=== PATIENT | male | born 1950 | race Caucasian/White ===

== ENCOUNTER 2016-07-25 16:15 | Inpatient (IN) | payer MEDICARE ==
[~2016-07-25] VITALS: Ht 167.6 cm; Wt 81.6 kg
[2016-07-25] MEDS ORDERED: DILTIAZEM IV PUSH 25 MG/5 ML VIAL. IVP ONE (17:15)
[2016-07-25 17:27] LABS: BASO % 0 % (0-3); EOS % 3 % (0-3); HEMATOCRIT 27.4 % (39.0-53.0); HEMOGLOBIN 9.3 g/dL (13.0-17.5); LYMPH # 1.5 x10^3/uL (1.0-4.8); LYMPH % 28 % (24-48); MEAN CORPUSCULAR HEMOGLOBIN 35 pg (25-35); MEAN CORPUSCULAR HGB CONC 34 g/dL (31-37); MEAN CORPUSCULAR VOLUME 103 fL (79-100); MONO % 5 % (0-9); NEUT % 64 % (31-73); PLATELET COUNT 216 x10^3/uL (140-400); RED BLOOD COUNT 2.66 x10^6/uL (4.30-5.70); RED CELL DISTRIBUTION WIDTH 14.6 % (11.5-14.5); WHITE BLOOD COUNT 5.5 x10^3/uL (4.0-11.0)
[2016-07-25] MEDS ORDERED: DILTIAZEM 125 MG in IV DEXTROSE 5% 100 ML IV PRN ×2 (17:30→17:45)
[2016-07-25 17:35] LABS: PROTHROMBIN TIME PATIENT 12.8 SEC (11.7-14.0)
--- NOTE | 2016-07-25 17:42 | PHYS DOC ---
Past Medical History Past Medical History: Diabetes-Type II, Hypertension Additional Past Medical Histor: CATARACTS Past Surgical History: Tonsillectomy, Other Additional Past Surgical Histo: AB HERNIA REPAIR,DIALYSIS SHUNT L ARM Alcohol Use: None Drug Use: None Adult General Chief Complaint Chief Complaint: RAPID HEART RATE HPI HPI Patient is a 66 year old male who presents by EMS from dialysis for A. fib with RVR. He felt generally abnormal, and had his vitals taken noted to be tachycardic. EKG was performed noting A. fib with RVR and he was transported here. He is currently without symptoms. He denies chest pain, dyspnea, lightheadedness, fever or chills, nausea or vomiting, abdominal pain, diarrhea. Denies recent [id number] medication use. Review of Systems Review of Systems Constitutional: Denies fever or chills [] Eyes: Denies change in visual acuity, redness, or eye pain [] HENT: Denies nasal congestion or sore throat [] Respiratory: Denies cough or shortness of breath [] Cardiovascular: No additional information not addressed in HPI [] GI: Denies abdominal pain, nausea, vomiting, bloody stools or diarrhea [] : Denies dysuria or hematuria [] Musculoskeletal: Denies back pain or joint pain [] Integument: Denies rash or skin lesions [] Neurologic: Denies headache, focal weakness or sensory changes [] Endocrine: Denies polyuria or polydipsia [] Current Medications Current Medications Current Medications Medications (Trade) Dose Ordered Sig/[facility] Start Time Stop Time Status Last Admin Dose Admin Diltiazem HCl (Cardizem) 20 mg 1X ONCE 07/25/16 17:15 07/25/16 17:19 DC 07/25/16 17:26 20 MG Allergies Allergies Allergies Coded Allergies Type Severity Reaction Last Updated Verified Penicillins Allergy Intermediate Hives 07/25/16 Yes Physical Exam Physical Exam Constitutional: Well developed, well nourished, no acute distress, non-toxic appearance. [] HENT: Normocephalic, atraumatic, bilateral external ears normal, oropharynx moist, nose normal. [] Eyes: PERRLA, EOMI. [] Neck: Normal range of motion, supple. [] Cardiovascular: Irregular tachycardia [] Lungs & Thorax: Bilateral breath sounds clear to auscultation [] Abdomen: Bowel sounds normal, soft, no tenderness. [] Skin: Warm, dry, no erythema, no rash. [] Back: Normal range of motion. [] Extremities: ROM intact, left upper extremity dialysis graft. [] Neurologic: Alert and oriented X 3, normal motor function, normal sensory function, no focal deficits noted. [] Psychologic: Affect normal, judgement normal, mood normal. [] Current Patient Data Vital Signs Vital Signs Date Time Temp Pulse Resp B/P Pulse Ox O2 Delivery O2 Flow Rate FiO2 07/25/16 16:15 97.7 134 16 144/71 97 Room Air 97.7 Lab Values Laboratory Tests Test 07/25/16 16:19 White Blood Count 5.5x10^3/uL (4.0-11.0) Red Blood Count 2.66x10^6/uL (4.30-5.70) L Hemoglobin 9.3g/dL (13.0-17.5) L Hematocrit 27.4% (39.0-53.0) L Mean Corpuscular Volume 103fL (79-100) H Mean Corpuscular Hemoglobin 35pg (25-35) Mean Corpuscular Hemoglobin Concent 34g/dL (31-37) Red Cell Distribution Width 14.6% (11.5-14.5) H Platelet Count 216x10^3/uL (140-400) Neutrophils (%) (Auto) 64% (31-73) Lymphocytes (%) (Auto) 28% (24-48) Monocytes (%) (Auto) 5% (0-9) Eosinophils (%) (Auto) 3% (0-3) Basophils (%) (Auto) 0% (0-3) Neutrophils # (Auto) 3.5x10^3uL (1.8-7.7) Lymphocytes # (Auto) 1.5x10^3/uL (1.0-4.8) Monocytes # (Auto) 0.3x10^3/uL (0.0-1.1) Eosinophils # (Auto) 0.2x10^3/uL (0.0-0.7) Basophils # (Auto) 0.0x10^3/uL (0.0-0.2) Prothrombin Time 12.8SEC (11.7-14.0) Prothrombin Time INR 1.0 (0.8-1.1) Sodium Level 144mmol/L (136-145) Potassium Level 3.9mmol/L (3.5-5.1) Chloride Level 101mmol/L (98-107) Carbon Dioxide Level 32mmol/L (21-32) Anion Gap 11 (6-14) Blood Urea Nitrogen 24mg/dL (8-26) Creatinine 2.8mg/dL (0.7-1.3) H Estimated GFR (Cockcroft-Gault) 22.7 Glucose Level 257mg/dL (70-99) H Calcium Level 9.2mg/dL (8.5-10.1) Magnesium Level 2.0mg/dL (1.8-2.4) Thyroid Stimulating Hormone (TSH) 1.428uIU/mL (0.358-3.74) Laboratory Tests 07/25/16 16:19 Laboratory Tests 07/25/16 16:19 EKG EKG EKG as interpreted by me as atrial fibrillation with rapid ventricular rate, rate 127, no ST-T changes Course & Med Decision Making Course & Med Decision Making Pertinent Labs and Imaging studies reviewed. (See chart for details) Workup is unremarkable other than A. fib with RVR. He is placed on a Cardizem drip and converted to normal sinus rhythm. Initially was placed in the ICU, but this was changed to CVC after he converted. Discussed case with Dr. Rey, who will admit. Cardiology consultation placed. Dragon Disclaimer Dragon Disclaimer This electronic medical record was generated, in whole or in part, using a voice recognition dictation system. Departure Departure Impression: Primary Impression: Atrial fibrillation with RVR Additional Impression: ESRD on dialysis Disposition: ADMITTED INPATIENT Condition: CRITICAL Referrals: MITRA TAYLOR MD (PCP) Problem Qualifiers Matthew BRUNSON MD Jul 25, 2016 17:42
[2016-07-25 17:44] LABS: CALCIUM 9.2 mg/dL (8.5-10.1); CREATININE 2.8 mg/dL (0.7-1.3); GFR 22.7; POTASSIUM 3.9 mmol/L (3.5-5.1)
[2016-07-25] MEDS ORDERED: ONDANSETRON PF 4 MG/2 ML VIAL. IV PRN ×2 (17:45→18:07)
[2016-07-25] MEDS ORDERED: ACETAMINOPHEN 325 MG TABLET. PO PRN (17:45)
--- NOTE | 2016-07-25 18:13 | PDOC1 ---
History and Physical Date of Admission Date of Admission DATE: 07/25/16 TIME: 18:09 Identification/Chief Complaint Chief Complaint none Source Source: Caregiver, Chart review, Patient History of Present Illness History of Present Illness pleasant 66 y./o male ESRD on HD MWF, sent in bec of atrial fib RVR while on HD today, New to pt, pt denies any sxs. Pt on HD bec of HTN and DM on insulin, unknown hgba1c. PCP? HR ranges from low 1teens to 140s at er, initial reports of hTN but not at ER (Systolic 140s), Pt getting cardizem bolus and starting gtt to ICU. Pt denies heavy coffeee, does smoke 1 ppday x 40 yrs Past Medical History Cardiovascular: HTN, Hyperlipidemia Pulmonary: Bronchitis Heme/Onc: Anemia NOS Renal/: Chronic renal insuff Endocrine: Diabetes Past Surgical History Past Surgical History: No pertinent history Family History Family History: Family History Unknown Social History Smoke: 1 pack per day ALCOHOL: occassional Drugs: None Current Problem List Problem List Problems Medical Problems: (1) Atrial fibrillation with RVR Status: Acute (2) ESRD on dialysis Status: Acute Problems: Current Medications Current Medications Current Medications Diltiazem HCl 20 mg 20 mg 1X ONCE IVP Last administered on 07/25/16t 17:26; Start 07/25/16 at 17:15; Stop 07/25/16 at 17:19; Status DC Diltiazem HCl 125 mg/Dextrose 125 ml @ 0 mls/hr CONT PRN IV SEE I/O RECORD Last administered on 07/25/16t 17:31; Start 07/25/16 at 17:30; Stop 07/25/16 at 17:47; Status DC Diltiazem HCl/ Dextrose (Cardizem) 125 ml @ 0 mls/hr CONT PRN IV SEE I/O RECORD ; Start 07/25/16 at 17:45 Ondansetron HCl (Zofran) 4 mg PRN Q8HRS PRN IV NAUSEA/VOMITING; Start 07/25/16 at 17:45; Stop 07/26/16 at 17:44 Acetaminophen (Tylenol) 650 mg PRN Q4HRS PRN PO FEVER; Start 07/25/16 at 17:45 ; Stop 07/26/16 at 17:44 Allergies Allergies: Coded Allergies: Penicillins (Verified Allergy, Intermediate, Hives, 2/27/17) ROS Review of System denies all 14 pt system reviewed Physical Exam General: Alert, Oriented X3, Cooperative, No acute distress HEENT: Atraumatic, Mucous membr. moist/pink Lungs: Clear to auscultation, Normal air movement Heart: S1S2, RRR, no thrills, no rubs, no jug vein distention Cardiovascular: Other (irregularly irreg) Breasts: Normal Abdomen: Normal bowel sounds, Soft, No tenderness, No hepatosplenomegaly, No masses Male Genitals Exam: normal genitalia, normal prostate PELVIC: Nml ext genitalia Extremities: No clubbing, No cyanosis, No edema, Normal pulses, No tenderness/ swelling Skin: No rashes, No breakdown, No significant lesion Neuro: Normal gait, Normal speech, Strength at 5/5 X4 ext, Normal tone, Sensation intact, Cranial nerves 3-12 NL, Reflexes 2+ Psych/Mental Status: Mental status NL, Mood NL Vitals Vitals Vital Signs Date Time Temp Pulse Resp B/P Pulse Ox O2 Delivery O2 Flow Rate FiO2 07/25/16 17:26 147 174/96 07/25/16 16:15 97.7 16 97 Room Air 97.7 Labs Labs Laboratory Tests Test 07/25/16 16:19 White Blood Count 5.5x10^3/uL (4.0-11.0) Red Blood Count 2.66x10^6/uL (4.30-5.70) Hemoglobin 9.3g/dL (13.0-17.5) Hematocrit 27.4% (39.0-53.0) Mean Corpuscular Volume 103fL (79-100) Mean Corpuscular Hemoglobin 35pg (25-35) Mean Corpuscular Hemoglobin Concent 34g/dL (31-37) Red Cell Distribution Width 14.6% (11.5-14.5) Platelet Count 216x10^3/uL (140-400) Neutrophils (%) (Auto) 64% (31-73) Lymphocytes (%) (Auto) 28% (24-48) Monocytes (%) (Auto) 5% (0-9) Eosinophils (%) (Auto) 3% (0-3) Basophils (%) (Auto) 0% (0-3) Neutrophils # (Auto) 3.5x10^3uL (1.8-7.7) Lymphocytes # (Auto) 1.5x10^3/uL (1.0-4.8) Monocytes # (Auto) 0.3x10^3/uL (0.0-1.1) Eosinophils # (Auto) 0.2x10^3/uL (0.0-0.7) Basophils # (Auto) 0.0x10^3/uL (0.0-0.2) Prothrombin Time 12.8SEC (11.7-14.0) Prothromb Time International Ratio 1.0 (0.8-1.1) Sodium Level 144mmol/L (136-145) Potassium Level 3.9mmol/L (3.5-5.1) Chloride Level 101mmol/L (98-107) Carbon Dioxide Level 32mmol/L (21-32) Anion Gap 11 (6-14) Blood Urea Nitrogen 24mg/dL (8-26) Creatinine 2.8mg/dL (0.7-1.3) Estimated GFR (Cockcroft-Gault) 22.7 Glucose Level 257mg/dL (70-99) Calcium Level 9.2mg/dL (8.5-10.1) Magnesium Level 2.0mg/dL (1.8-2.4) Laboratory Tests Test 07/25/16 16:19 White Blood Count 5.5x10^3/uL (4.0-11.0) Red Blood Count 2.66x10^6/uL (4.30-5.70) Hemoglobin 9.3g/dL (13.0-17.5) Hematocrit 27.4% (39.0-53.0) Mean Corpuscular Volume 103fL (79-100) Mean Corpuscular Hemoglobin 35pg (25-35) Mean Corpuscular Hemoglobin Concent 34g/dL (31-37) Red Cell Distribution Width 14.6% (11.5-14.5) Platelet Count 216x10^3/uL (140-400) Neutrophils (%) (Auto) 64% (31-73) Lymphocytes (%) (Auto) 28% (24-48) Monocytes (%) (Auto) 5% (0-9) Eosinophils (%) (Auto) 3% (0-3) Basophils (%) (Auto) 0% (0-3) Neutrophils # (Auto) 3.5x10^3uL (1.8-7.7) Lymphocytes # (Auto) 1.5x10^3/uL (1.0-4.8) Monocytes # (Auto) 0.3x10^3/uL (0.0-1.1) Eosinophils # (Auto) 0.2x10^3/uL (0.0-0.7) Basophils # (Auto) 0.0x10^3/uL (0.0-0.2) Prothrombin Time 12.8SEC (11.7-14.0) Prothromb Time International Ratio 1.0 (0.8-1.1) Sodium Level 144mmol/L (136-145) Potassium Level 3.9mmol/L (3.5-5.1) Chloride Level 101mmol/L (98-107) Carbon Dioxide Level 32mmol/L (21-32) Anion Gap 11 (6-14) Blood Urea Nitrogen 24mg/dL (8-26) Creatinine 2.8mg/dL (0.7-1.3) Estimated GFR (Cockcroft-Gault) 22.7 Glucose Level 257mg/dL (70-99) Calcium Level 9.2mg/dL (8.5-10.1) Magnesium Level 2.0mg/dL (1.8-2.4) VTE Prophylaxis Ordered VTE Prophylaxis Devices: Yes VTE Pharmacological Prophylaxi: Yes Assessment/Plan Assessment/Plan 1. New onset atrial fib RVR, CHADS 3 2. ESDR on HD MWF 3. obesity 4. HTN, DM 2, on insulin- chronci stable PLAn: ICU admit rate control AC per cards if needed DVT prophy for now Resume home meds - awaiting home meds SSI high dose Check mag, tsh, trops x 3 renal consult for HD PT/OT Seen at ER' [facility] ER MD, MARINE SPECIALIST and pt JAQUELINE STEEN MD Jul 25, 2016 18:13
[2016-07-25] MEDS ORDERED: DEXTROSE 50% 25 GM / 50ML DISP.SYRIN. IV PRN ×2 (18:15→22:45)
--- NOTE | 2016-07-25 18:40 | EKG ---
[facility] [address] [place] [address] Test Date: 2016-07-25 Test Time: 16:25:34 Pat Name: YOLANDE PETERSON Department: Room: 248 1 Gender: M Agent: : [id number] Requested By: Matthew BRUNSON Order Number: [id number] Reading MD: Juan Subramanian Measurements Intervals Interior Rate: 127 P: ME: QRS: 18 QRSD: 94 T: 40 QT: 330 QTc: 485 Interpretive Statements RAPID ATRIAL FIBRILLATION. NONSPECIFIC ST-T WAVE CHANGES. Electronically Signed On 08-01-2016 10:39:19 VP OF CUSTOMER EXPERIENCE STRATEGY by Juan Subramanian
[2016-07-25 19:30] VITALS: BP 167/57
[2016-07-25 21:30] VITALS: BP 221/91
[2016-07-25] MEDS ORDERED: MELA3TAB12 PO (21:47)
[2016-07-25] MEDS ORDERED: CARV6.252 PO (21:47)
[2016-07-25] MEDS ORDERED: TAMS0.4C2 PO (21:47)
[2016-07-25] MEDS ORDERED: CALC667T PO (21:47)
[2016-07-25] MEDS ORDERED: RISP0.5T5 PO (21:47)
[2016-07-25] MEDS ORDERED: INSU100I17 SQ (21:47)
[2016-07-25] MEDS ORDERED: NPH,100I3 SQ (21:47)
[2016-07-25] MEDS ORDERED: HYDR-2666 PO (21:47)
[2016-07-25] MEDS ORDERED: POLY17PO5 PO (21:47)
[2016-07-25] MEDS ORDERED: LOVA40TA2 PO (21:47)
[2016-07-25] MEDS ORDERED: ASPI-482 PO (21:47)
[2016-07-25] MEDS ORDERED: CHOL5000 PO (21:47)
[2016-07-25 22:30] VITALS: BP 188/89
[2016-07-25] MEDS ORDERED: ZOLPIDEM 5 MG TABLET. PO PRN (22:45)
[2016-07-25] MEDS ORDERED: HYDROCODONE/APAP 5/325MG TABLET. PO PRN (22:45)
[2016-07-25 23:15] VITALS: BP 192/83
[2016-07-25] MEDS: ATORVASTATIN CALCIUM 10 MG TABLET. PO SCH (23:57)
[2016-07-25] MEDS: TAMSULOSIN 0.4 MG CAP.ER.24H. PO SCH (23:57)
[2016-07-25] MEDS: risperiDONE 1 MG TABLET. PO SCH (23:58)
[2016-07-25] MEDS: CARVEDILOL 6.25 MG TABLET PO SCH (23:59)
[2016-07-26] VITALS (15 sets, daily range): BP systolic 133–223; BP diastolic 56–91
[2016-07-26] MEDS: INSULIN ASPART 300 UNITS/3 ML INSULN.PEN SQ SCH ×5 (00:12→17:00)
[2016-07-26 06:05] LABS: BASO % 1 % (0-3); EOS % 2 % (0-3); HEMATOCRIT 22.7 % (39.0-53.0); HEMOGLOBIN 7.7 g/dL (13.0-17.5); LYMPH # 1.3 x10^3/uL (1.0-4.8); LYMPH % 24 % (24-48); MEAN CORPUSCULAR HEMOGLOBIN 35 pg (25-35); MEAN CORPUSCULAR HGB CONC 34 g/dL (31-37); MEAN CORPUSCULAR VOLUME 104 fL (79-100); MONO % 10 % (0-9); NEUT % 64 % (31-73); PLATELET COUNT 180 x10^3/uL (140-400); RED CELL DISTRIBUTION WIDTH 14.7 % (11.5-14.5); WHITE BLOOD COUNT 5.5 x10^3/uL (4.0-11.0)
[2016-07-26 06:13] LABS: CALCIUM 8.4 mg/dL (8.5-10.1); CREATININE 4.2 mg/dL (0.7-1.3); GFR 14.2; POTASSIUM 4.3 mmol/L (3.5-5.1)
[2016-07-26] MEDS: CARVEDILOL 6.25 MG TABLET PO SCH (07:50)
[2016-07-26] MEDS: CALCIUM ACETATE 667 MG CAPSULE PO SCH ×3 (08:00→17:00)
[2016-07-26] MEDS ORDERED: INSULIN DETEMIR 300 UNITS/3 ML INSULN.PEN. SQ SCH (08:00)
[2016-07-26] MEDS ORDERED: hydrALAZINE 20 MG/ML VIAL. IVP ONE (08:30)
[2016-07-26] MEDS: ASPIRIN ENTERIC COATED 81 MG TABLET.DR. PO SCH (09:00)
--- NOTE | 2016-07-26 09:30 | PDOC2 ---
REHAN MORENO INTERNATIONAL TRAVEL CONSULTANT 07/26/16 0930: CARDIAC CONSULT DATE OF CONSULT Date of Consult DATE: 07/26/16 TIME: 09:23 REASON FOR CONSULT Reason for Consult: AFIB with RVR REFERRING PHYSICIAN Referring Physician: Dr. Foreman SOURCE Source: Chart review, Patient HISTORY OF PRESENT ILLNESS HISTORY OF PRESENT ILLNESS This is a 66 yo male who presented with from dialysis secondary to AFIB with RVR. Routine vital taken during HD identified tachycardia. EKG was conducted, which showed AFIB with RVR. Patient reports he was feeling well other than having a headache. Reports BP has elevated recently. Denies any chest pain, palpitations, dizziness, diaphoresis, nausea/vomiting. No recent illness/fevers , orthopnea, or VALDIVIA. Diagnosed with stage IV lung CA 1 year ago- treated with radiation therapy. Unfortunately continues to smoke. No previous cardiac workup that he is aware of. Mother from heart attack at age 55. PAST MEDICAL HISTORY Cardiovascular: HTN, Hyperlipidemia Pulmonary: Other (lung CA) CENTRAL NERVOUS SYSTEM: Other (no pertinent hx) GI: No pertinent hx Heme/Onc: Anemia NOS Hepatobiliary: No pertinent hx Psych: No pertinent hx Musculoskeletal: Osteoarthritis Rheumatologic: No pertinent hx Infectious disease: No pertinent hx ENT: No pertinent hx Renal/: Chronic renal failure (with HD MWF) Endocrine: Diabetes Dermatology: No pertinent hx PAST SURGICAL HISTORY Past Surgical History: Cataract Removal, Tonsillectomy, Other (abdominal sx) FAMILY HISTORY Family History: Coronary Artery Disease, Diabetes, Hypertension SOCIAL HISTORY Smoke: 1 pack per day ALCOHOL: none Drugs: None Lives: with Family CURRENT MEDICATIONS CURRENT MEDICATIONS Current Medications Medications (Trade) Dose Ordered Sig/Jessie Route PRN Reason Start Time Stop Time Status Last Admin Dose Admin Diltiazem HCl 20 mg 20 mg 1X ONCE IVP 07/25/16 17:15 07/25/16 17:19 DC 07/25/16 17:26 Diltiazem HCl 125 mg/Dextrose 125 ml @ 0 mls/hr CONT PRN IV SEE I/O RECORD 07/25/16 17:30 07/25/16 17:47 DC 07/25/16 17:31 Diltiazem HCl/ Dextrose (Cardizem) 125 ml @ 0 mls/hr CONT PRN IV SEE I/O RECORD 07/25/16 17:45 07/26/16 05:47 Insulin Aspart (Novolog) 0-9 UNITS TIDWMEALS SQ 07/26/16 08:00 07/26/16 08:39 Carvedilol (Coreg) 6.25 mg BIDWMEALS PO 07/25/16 22:45 07/26/16 07:50 Insulin Detemir (Levemir) 10 units BIDWMEALS SQ 07/26/16 08:00 07/26/16 08:39 Tamsulosin HCl (Flomax) 0.8 mg HS PO 07/25/16 23:00 07/25/16 23:57 Atorvastatin Calcium (Lipitor) 10 mg HS PO 07/25/16 23:00 07/25/16 23:57 Risperidone (Risperdal) 0.5 mg HS PO 07/25/16 23:00 07/25/16 23:58 Insulin Aspart (Novolog) 0-7 UNITS QIDACHS SQ 07/25/16 22:45 07/26/16 00:12 Hydralazine HCl (Apresoline) 10 mg 1X ONCE IVP 07/26/16 08:30 07/26/16 08:31 DC 07/26/16 08:34 ALLERGIES ALLERGIES: Coded Allergies: Penicillins (Verified Allergy, Intermediate, Hives, 07/25/16) ROS Review of System 14 point ROS conducted with pertinent positives noted above in HPI. PHYSICAL EXAM General: Alert, Oriented X3, Cooperative, No acute distress HEENT: Mucous membr. moist/pink Lungs: Clear to auscultation, Normal air movement Heart: Regular rate, Normal S1, Normal S2, Other (2/6 systolic murmur ) Abdomen: Soft, No tenderness Extremities: No cyanosis, No edema, Other (1+ DP pulses bilaterally ) Skin: No significant lesion Neuro: Sensation intact Psych/Mental Status: Mental status NL, Mood NL MUSCULOSKELETAL: Osteoarthritic changes both hands VITALS VITALS Vital Signs Date Time Temp Pulse Resp B/P Pulse Ox O2 Delivery O2 Flow Rate FiO2 07/26/16 08:34 62 203/84 07/26/16 07:45 Room Air 2.0 07/26/16 07:35 97.7 18 93 97.7 LABS Lab: Laboratory Tests Test 07/25/16 16:19 07/25/16 20:49 07/26/16 00:35 2/28/17 05:45 White Blood Count 5.5x10^3/uL (4.0-11.0) 5.5x10^3/uL (4.0-11.0) Red Blood Count 2.66x10^6/uL (4.30-5.70) 2.20x10^6/uL (4.30-5.70) Hemoglobin 9.3g/dL (13.0-17.5) 7.7g/dL (13.0-17.5) Hematocrit 27.4% (39.0-53.0) 22.7% (39.0-53.0) Mean Corpuscular Volume 103fL (79-100) 104fL (79-100) Mean Corpuscular Hemoglobin 35pg (25-35) 35pg (25-35) Mean Corpuscular Hemoglobin Concent 34g/dL (31-37) 34g/dL (31-37) Red Cell Distribution Width 14.6% (11.5-14.5) 14.7% (11.5-14.5) Platelet Count 216x10^3/uL (140-400) 180x10^3/uL (140-400) Neutrophils (%) (Auto) 64% (31-73) 64% (31-73) Lymphocytes (%) (Auto) 28% (24-48) 24% (24-48) Monocytes (%) (Auto) 5% (0-9) 10% (0-9) Eosinophils (%) (Auto) 3% (0-3) 2% (0-3) Basophils (%) (Auto) 0% (0-3) 1% (0-3) Neutrophils # (Auto) 3.5x10^3uL (1.8-7.7) 3.5x10^3uL (1.8-7.7) Lymphocytes # (Auto) 1.5x10^3/uL (1.0-4.8) 1.3x10^3/uL (1.0-4.8) Monocytes # (Auto) 0.3x10^3/uL (0.0-1.1) 0.5x10^3/uL (0.0-1.1) Eosinophils # (Auto) 0.2x10^3/uL (0.0-0.7) 0.1x10^3/uL (0.0-0.7) Basophils # (Auto) 0.0x10^3/uL (0.0-0.2) 0.0x10^3/uL (0.0-0.2) Prothrombin Time 12.8SEC (11.7-14.0) Prothromb Time International Ratio 1.0 (0.8-1.1) Sodium Level 144mmol/L (136-145) 140mmol/L (136-145) Potassium Level 3.9mmol/L (3.5-5.1) 4.3mmol/L (3.5-5.1) Chloride Level 101mmol/L (98-107) 100mmol/L (98-107) Carbon Dioxide Level 32mmol/L (21-32) 30mmol/L (21-32) Anion Gap 11 (6-14) 10 (6-14) Blood Urea Nitrogen 24mg/dL (8-26) 38mg/dL (8-26) Creatinine 2.8mg/dL (0.7-1.3) 4.2mg/dL (0.7-1.3) Estimated GFR (Cockcroft-Gault) 22.7 14.2 Glucose Level 257mg/dL (70-99) 447mg/dL (70-99) Calcium Level 9.2mg/dL (8.5-10.1) 8.4mg/dL (8.5-10.1) Magnesium Level 2.0mg/dL (1.8-2.4) 2.0mg/dL (1.8-2.4) Thyroid Stimulating Hormone (TSH) 1.428uIU/mL (0.358-3.74) Glucose (Fingerstick) 443mg/dL (70-99) Troponin I Quantitative 3.560ng/mL (0.000-0.055) 3.989ng/mL (0.000-0.055) Test 07/26/16 07:39 Glucose (Fingerstick) 369mg/dL (70-99) ASSESSMENT/PLAN ASSESSMENT/PLAN 1. AFIB with RVR converted with cardizem gtt; maintaining SR- will convert to oral. TSH, Mg WNL [id number] score 3 indicating a moderate-high risk for stroke. Given episode of AFIB was <24hr, will continue ASA for stroke prophylaxis. Consider event monitor as DC. check echo to assess LV function and further assess systolic murmur 2. Elevated Troponin peak 4.2 in the setting of RF, RVR, and malignant HTN given significant risk factors, recommend LHC. R/B/A discussed and patient agreeable. D/w primary cardiology. start heparin gtt per CV protocol 3. Malignant hypertension improved. Add NACHO hydralazine PRN 4. Hyperlipidemia resume statin check lipids 5, ESRD on HD 6. Diabetes, II uncontrolled. Management per PCP 7. Stage IV lung CA s/p radiation therapy follows with [facility]ology Problems: REGINA LANG MD 07/27/16 0551: CARDIAC CONSULT ALLERGIES ALLERGIES: Coded Allergies: Penicillins (Verified Allergy, Intermediate, Hives, 07/25/16) ASSESSMENT/PLAN ASSESSMENT/PLAN Patient seen and examined 07/26/16. Agree with COLLAR SHAPER OPERATOR's assessment and plan. Atrial fib rate better controlled with CZM. Continue to titrate antihypertensives for better BP control. LV function normal on echo. NSTEMI could be secondary to demand ischemia from a combination of uncontrolled hypertension and rapid ventricular response but ischemic etiology needs to be ruled out. Plan for cardiac cath and possible PCI. Risks and benefits explained. Continue HD per nephrology team. Thank you for your consultation. Problems: REHAN MORENO APRN Jul 26, 2016 09:30 REGINA LANG MD Jul 27, 2016 05:51
[2016-07-26] MEDS ORDERED: HEPARIN for IV BOLUS 10,000 UNIT/10 ML VIAL. IV PRN (10:15)
[2016-07-26] MEDS ORDERED: HEPARIN 25,000UTS/500ML PREMIX 500 ML IV PRN (10:15)
[2016-07-26] MEDS ORDERED: hydrALAZINE 20 MG/ML VIAL. IVP PRN (10:15)
[2016-07-26] MEDS ORDERED: DILTIAZEM HCL 30 MG TABLET PO SCH (10:30)
[2016-07-26] MEDS ORDERED: LISINOPRIL 5 MG TABLET. PO SCH (10:30)
--- NOTE | 2016-07-26 10:39 | RAD ---
Portable chest, 07/26/2016: History: Lung cancer No previous chest radiographs are available at this time for comparison purposes. The heart is at the upper limits of normal in size. There is calcific plaquing the aorta. The pulmonary vascularity is normal. There is pleural thickening in the left lower chest compatible with pleural fluid. There is underlying parenchymal infiltrate in the left lung base. There is mild linear scarring or atelectasis in the right base. The right chest is otherwise clear. IMPRESSION: Moderate left basilar opacity suggesting pleural fluid and infiltrate. Underlying neoplasm cannot be excluded in this patient with a given history of lung cancer.
--- NOTE | 2016-07-26 10:50 | PDOC2 ---
CONSULT Date of Consult Date of Consult DATE: 07/26/16 TIME: 10:45 Reason for Consult Reason for Consult: ESRD Referring Physician Referring Physician: ENIO Identification/Chief Complaint Chief Complaint SOB Source Source: Chart review, Patient History of Present Illness Reason for Visit: THIS IS A 66 YR OLD ADMITTED WITH COMPLAINTS OF SOB AND WEAKNESS AND NOTED TO BE IN AFIB RVR. HX NOTABLE FOR ESRD ON HD ON MWF. HX OF HTN AND DM II CAUSING END ORGAN DAMAGE. LABS C/W ESRD AND ANEMIA. TROPONIN UP WELL Past Medical History Cardiovascular: HTN, Hyperlipidemia Pulmonary: Other (lung CA) CENTRAL NERVOUS SYSTEM: Other (no pertinent hx) GI: No pertinent hx Heme/Onc: Anemia NOS Hepatobiliary: No pertinent hx Psych: No pertinent hx Musculoskeletal: Osteoarthritis Rheumatologic: No pertinent hx Infectious disease: No pertinent hx ENT: No pertinent hx Renal/: Chronic renal failure (with HD MWF) Endocrine: Diabetes, Hyperparathyroidism Dermatology: No pertinent hx Past Surgical History Past Surgical History: Cataract Removal, Tonsillectomy, Other (abdominal sx) Family History Family History: Coronary Artery Disease, Diabetes, Hypertension Social History 1 pack per day ALCOHOL: none Drugs: None Lives: with Family Current Problem List Problem List Problems Medical Problems: (1) Atrial fibrillation with RVR Status: Acute (2) ESRD on dialysis Status: Acute Current Medications Current Medications Current Medications Diltiazem HCl 20 mg 20 mg 1X ONCE IVP Last administered on 07/25/16 17:26; Start 07/25/16 at 17:15; Stop 07/25/16 at 17:19; Status DC Diltiazem HCl 125 mg/Dextrose 125 ml @ 0 mls/hr CONT PRN IV SEE I/O RECORD Last administered on 07/25/16 17:31; Start 07/25/16 at 17:30; Stop 07/25/16 at 17:47; Status DC Diltiazem HCl/ Dextrose (Cardizem) 125 ml @ 0 mls/hr CONT PRN IV SEE I/O RECORD Last administered on 07/26/16 05:47; Start 07/25/16 at 17:45 Ondansetron HCl (Zofran) 4 mg PRN Q8HRS PRN IV NAUSEA/VOMITING; Start 07/25/16 at 17:45; Stop 07/25/16 at 18:09; Status DC Acetaminophen (Tylenol) 650 mg PRN Q4HRS PRN PO FEVER; Start 07/25/16 at 17:45 ; Stop 07/26/16 at 17:44 Ondansetron HCl (Zofran) 4 mg PRN Q6HRS PRN IV NAUSEA/VOMITING; Start 07/25/16 at 18:07 Insulin Aspart (Novolog) 0-9 UNITS TIDWMEALS SQ Last administered on 07/26/16 08:39; Start 07/26/16 at 08:00 Dextrose 12.5 gm PRN Q15MIN PRN IV SEE COMMENTS; Start 07/25/16 at 18:15 Aspirin (Ecotrin) 81 mg DAILY PO ; Start 07/26/16 at 09:00 Carvedilol (Coreg) 6.25 mg BIDWMEALS PO Last administered on 07/26/16 07:50; Start 07/25/16 at 22:45 Vitamin D (Vitamin D3) 5,000 unit WEEKLY PO ; Start 07/29/16 at 09:00 Acetaminophen/ Hydrocodone Bitart (Lortab 5/325) 1 tab PRN Q4HRS PRN PO PAIN; Start 07/25/16 at 22:45 Polyethylene Glycol (miraLAX PACKET) 17 gm HS PO ; Start 07/26/16 at 21:00 Tamsulosin HCl (Flomax) 0.8 mg HS PO ; Start 07/26/16 at 21:00; Stop 07/26/16 at 21:00; Status DC Calcium Acetate (Phoslo) 2 mg TIDWMEALS PO ; Start 07/26/16 at 08:00 Non-Formulary Medication 1 tab HS PO ; Start 07/26/16 at 21:00; Stop 07/26/16 at 21:00; Status DC Zolpidem Tartrate (Ambien) 5 mg PRN QHS PRN PO INSOMNIA; Start 07/25/16 at 22: 45 Insulin Detemir (Levemir) 10 units BIDWMEALS SQ Last administered on 07/26/16 08:39; Start 07/26/16 at 08:00 Non-Formulary Medication 1 tab HS PO ; Start 07/26/16 at 21:00; Stop 07/26/16 at 21:00; Status DC Tamsulosin HCl (Flomax) 0.8 mg HS PO Last administered on 07/25/16 23:57; Start 07/25/16 at 23:00 Atorvastatin Calcium (Lipitor) 10 mg HS PO Last administered on 07/25/16 23:57 ; Start 07/25/16 at 23:00 Risperidone (Risperdal) 0.5 mg HS PO Last administered on 07/25/16 23:58; Start 07/25/16 at 23:00 Insulin Aspart (Novolog) 0-7 UNITS QIDACHS SQ Last administered on 07/26/16 00 :12; Start 07/25/16 at 22:45 Dextrose 12.5 gm PRN Q15MIN PRN IV SEE COMMENTS; Start 07/25/16 at 22:45 Hydralazine HCl (Apresoline) 10 mg 1X ONCE IVP Last administered on 07/26/16 08:34; Start 07/26/16 at 08:30; Stop 07/26/16 at 08:31; Status DC Diltiazem HCl 30 mg 30 mg Q6HRS PO ; Start 07/26/16 at 10:30 Heparin Sodium/ Dextrose 500 ml @ 0 mls/hr CONT PRN IV SEE I/O RECORD; Start at 10:15 Heparin Sodium (Porcine) 2,100 unit PRN Q6HRS PRN IV FOR UFH LEVEL LESS THAN 0.2; Start 07/26/16 at 10:15 Lisinopril (Prinivil) 5 mg DAILY PO ; Start 07/26/16 at 10:30 Hydralazine HCl (Apresoline) 10 mg PRN Q4HRS PRN IVP ELEVATED BP, SEE COMMENTS ; Start 07/26/16 at 10:15 Active Scripts Active Reported Novolog Flexpen (Insulin Aspart) 100 Unit/1 Ml Insuln.pen 1 Unit SQ QIDACHS per SSI protocol Melatonin 3 Mg Tab.rapdis 3 Mg PO PRN QHS PRN Aspir 81 (Aspirin) 81 Mg Tablet.dr 1 Tab PO DAILY Miralax (Polyethylene Glycol 3350) 17 Gm Powd.pack 1 Packet PO HS Vitamin D3 (Cholecalciferol (Vitamin D3)) 5,000 Unit Capsule 1 Cap PO WEEKLY on Monday Humulin N Kwikpen (Nph, Human Insulin Isophane) 100 Unit/1 Ml Insuln.pen 10 Units SQ BIDWMEALS Lovastatin 40 Mg Tablet 1 Tab PO HS Risperidone Odt (Risperidone) 0.5 Mg Tab.rapdis 1 Tab PO HS Carvedilol 6.25 Mg Tablet 1 Tab PO BID Calcium Acetate 667 Mg Tablet 2 Tab PO TIDWMEALS Hydrocodone-Apap 5-325 (Hydrocodone Bit/Acetaminophen) 1 Each Tablet 1 Tab PO PRN Q4HRS PRN Tamsulosin Hcl 0.4 Mg Cap.er.24h 2 Tab PO HS Allergies Allergies: Coded Allergies: Penicillins (Verified Allergy, Intermediate, Hives, 07/25/16) ROS General: YES: Fatigue, Malaise PSYCHOLOGICAL ROS: YES: Anxiety Eyes: Yes Decreased vision HEENT: YES: Heacaches ALLERGY AND IMMUNOLOGY: YES: Hives Respiratory: YES: Cough, Shortness of breath Cardiovascular: yes Palpitations Gastrointestinal: Yes Constipation Genitourinary: YES Other (ANURIA) Musculoskeletal: Yes Muscular Weakness Neurological: Yes Weakness Skin: Yes Dry Skin Physical Exam General: Alert, Oriented X3, Cooperative, No acute distress HEENT: Atraumatic, PERRLA, EOMI Lungs: Clear to auscultation Heart: Other (IRREGULARLY IRREGULAR) Abdomen: Normal bowel sounds, Soft Extremities: No clubbing, No cyanosis Skin: No rashes, No breakdown, No significant lesion Neuro: Normal speech Psych/Mental Status: Mental status NL MUSCULOSKELETAL: No deformity, No swelling Vitals VITALS Vital Signs Date Time Temp Pulse Resp B/P Pulse Ox O2 Delivery O2 Flow Rate FiO2 07/26/16 10:22 67 20 155/91 98 Room Air 07/26/16 07:45 2.0 07/26/16 07:35 97.7 97.7 Labs Labs Laboratory Tests Test 07/25/16 16:19 07/25/16 20:49 07/26/16 00:35 07/26/16 05:45 White Blood Count 5.5x10^3/uL (4.0-11.0) 5.5x10^3/uL (4.0-11.0) Red Blood Count 2.66x10^6/uL (4.30-5.70) 2.20x10^6/uL (4.30-5.70) Hemoglobin 9.3g/dL (13.0-17.5) 7.7g/dL (13.0-17.5) Hematocrit 27.4% (39.0-53.0) 22.7% (39.0-53.0) Mean Corpuscular Volume 103fL (79-100) 104fL (79-100) Mean Corpuscular Hemoglobin 35pg (25-35) 35pg (25-35) Mean Corpuscular Hemoglobin Concent 34g/dL (31-37) 34g/dL (31-37) Red Cell Distribution Width 14.6% (11.5-14.5) 14.7% (11.5-14.5) Platelet Count 216x10^3/uL (140-400) 180x10^3/uL (140-400) Neutrophils (%) (Auto) 64% (31-73) 64% (31-73) Lymphocytes (%) (Auto) 28% (24-48) 24% (24-48) Monocytes (%) (Auto) 5% (0-9) 10% (0-9) Eosinophils (%) (Auto) 3% (0-3) 2% (0-3) Basophils (%) (Auto) 0% (0-3) 1% (0-3) Neutrophils # (Auto) 3.5x10^3uL (1.8-7.7) 3.5x10^3uL (1.8-7.7) Lymphocytes # (Auto) 1.5x10^3/uL (1.0-4.8) 1.3x10^3/uL (1.0-4.8) Monocytes # (Auto) 0.3x10^3/uL (0.0-1.1) 0.5x10^3/uL (0.0-1.1) Eosinophils # (Auto) 0.2x10^3/uL (0.0-0.7) 0.1x10^3/uL (0.0-0.7) Basophils # (Auto) 0.0x10^3/uL (0.0-0.2) 0.0x10^3/uL (0.0-0.2) Prothrombin Time 12.8SEC (11.7-14.0) Prothromb Time International Ratio 1.0 (0.8-1.1) Sodium Level 144mmol/L (136-145) 140mmol/L (136-145) Potassium Level 3.9mmol/L (3.5-5.1) 4.3mmol/L (3.5-5.1) Chloride Level 101mmol/L (98-107) 100mmol/L (98-107) Carbon Dioxide Level 32mmol/L (21-32) 30mmol/L (21-32) Anion Gap 11 (6-14) 10 (6-14) Blood Urea Nitrogen 24mg/dL (8-26) 38mg/dL (8-26) Creatinine 2.8mg/dL (0.7-1.3) 4.2mg/dL (0.7-1.3) Estimated GFR (Cockcroft-Gault) 22.7 14.2 Glucose Level 257mg/dL (70-99) 447mg/dL (70-99) Calcium Level 9.2mg/dL (8.5-10.1) 8.4mg/dL (8.5-10.1) Magnesium Level 2.0mg/dL (1.8-2.4) 2.0mg/dL (1.8-2.4) Thyroid Stimulating Hormone (TSH) 1.428uIU/mL (0.358-3.74) Glucose (Fingerstick) 443mg/dL (70-99) Troponin I Quantitative 3.560ng/mL (0.000-0.055) 3.989ng/mL (0.000-0.055) Test 07/26/16 05:48 07/26/16 07:39 Triglycerides Level 110mg/dL (0-150) Cholesterol Level 111mg/dL (0-200) LDL Cholesterol, Calculated 52mg/dL (0-100) VLDL Cholesterol, Calculated 22mg/dL (0-40) HDL Cholesterol 37mg/dL (40-60) Cholesterol/HDL Ratio 3.0 Glucose (Fingerstick) 369mg/dL (70-99) Laboratory Tests Test 07/25/16 16:19 07/25/16 20:49 07/26/16 00:35 07/26/16 05:45 White Blood Count 5.5x10^3/uL (4.0-11.0) 5.5x10^3/uL (4.0-11.0) Red Blood Count 2.66x10^6/uL (4.30-5.70) 2.20x10^6/uL (4.30-5.70) Hemoglobin 9.3g/dL (13.0-17.5) 7.7g/dL (13.0-17.5) Hematocrit 27.4% (39.0-53.0) 22.7% (39.0-53.0) Mean Corpuscular Volume 103fL (79-100) 104fL (79-100) Mean Corpuscular Hemoglobin 35pg (25-35) 35pg (25-35) Mean Corpuscular Hemoglobin Concent 34g/dL (31-37) 34g/dL (31-37) Red Cell Distribution Width 14.6% (11.5-14.5) 14.7% (11.5-14.5) Platelet Count 216x10^3/uL (140-400) 180x10^3/uL (140-400) Neutrophils (%) (Auto) 64% (31-73) 64% (31-73) Lymphocytes (%) (Auto) 28% (24-48) 24% (24-48) Monocytes (%) (Auto) 5% (0-9) 10% (0-9) Eosinophils (%) (Auto) 3% (0-3) 2% (0-3) Basophils (%) (Auto) 0% (0-3) 1% (0-3) Neutrophils # (Auto) 3.5x10^3uL (1.8-7.7) 3.5x10^3uL (1.8-7.7) Lymphocytes # (Auto) 1.5x10^3/uL (1.0-4.8) 1.3x10^3/uL (1.0-4.8) Monocytes # (Auto) 0.3x10^3/uL (0.0-1.1) 0.5x10^3/uL (0.0-1.1) Eosinophils # (Auto) 0.2x10^3/uL (0.0-0.7) 0.1x10^3/uL (0.0-0.7) Basophils # (Auto) 0.0x10^3/uL (0.0-0.2) 0.0x10^3/uL (0.0-0.2) Prothrombin Time 12.8SEC (11.7-14.0) Prothromb Time International Ratio 1.0 (0.8-1.1) Sodium Level 144mmol/L (136-145) 140mmol/L (136-145) Potassium Level 3.9mmol/L (3.5-5.1) 4.3mmol/L (3.5-5.1) Chloride Level 101mmol/L (98-107) 100mmol/L (98-107) Carbon Dioxide Level 32mmol/L (21-32) 30mmol/L (21-32) Anion Gap 11 (6-14) 10 (6-14) Blood Urea Nitrogen 24mg/dL (8-26) 38mg/dL (8-26) Creatinine 2.8mg/dL (0.7-1.3) 4.2mg/dL (0.7-1.3) Estimated GFR (Cockcroft-Gault) 22.7 14.2 Glucose Level 257mg/dL (70-99) 447mg/dL (70-99) Calcium Level 9.2mg/dL (8.5-10.1) 8.4mg/dL (8.5-10.1) Magnesium Level 2.0mg/dL (1.8-2.4) 2.0mg/dL (1.8-2.4) Thyroid Stimulating Hormone (TSH) 1.428uIU/mL (0.358-3.74) Glucose (Fingerstick) 443mg/dL (70-99) Troponin I Quantitative 3.560ng/mL (0.000-0.055) 3.989ng/mL (0.000-0.055) Test 07/26/16 05:48 07/26/16 07:39 Triglycerides Level 110mg/dL (0-150) Cholesterol Level 111mg/dL (0-200) LDL Cholesterol, Calculated 52mg/dL (0-100) VLDL Cholesterol, Calculated 22mg/dL (0-40) HDL Cholesterol 37mg/dL (40-60) Cholesterol/HDL Ratio 3.0 Glucose (Fingerstick) 369mg/dL (70-99) Assessment/Plan Assessment/Plan IMP ESRD ANEMIA AFIB RVR HTN DM II AMI PLAN HD TOMORROW AGREE WITH NACHO JAVED GTT FOR RATE CONTROL HEART CATH RAMONA KHOURY MD Jul 26, 2016 10:50
[2016-07-26] MEDS ORDERED: IODIXANOL 320 MG/ML 100 ML VIAL. ONE (14:48)
[2016-07-26] MEDS ORDERED: LIDOCAINE 2% 20 ML VIAL. ONE (14:48)
--- NOTE | 2016-07-26 15:01 | PDOC ---
PROGRESS NOTES Chief Complaint Chief Complaint 1. New onset atrial fib RVR, CHADS 3 2. ESDR on HD MWF 3. obesity 4. HTN, DM 2, on insulin- chronci stable PLAn: on cardizem drip, fu with card, on cardizem po now, alson on coreg heparin drip SSI high dose, add levemir 20u qhs Check mag, tsh, trops x 3 renal consult for HD PT/OT echo pending History of Present Illness History of Present Illness on cardizem drip, sinus now high glucose Vitals Vitals Vital Signs Date Time Temp Pulse Resp B/P Pulse Ox O2 Delivery O2 Flow Rate FiO2 07/26/16 14:39 98.2 60 21 178/77 95 Room Air 98.2 07/26/16 07:45 2.0 Physical Exam General: Alert, Oriented X3, Cooperative, No acute distress Heart: Regular rate, Normal S1, Other (IRREGULARLY IRREGULAR) Lungs: Clear Abdomen: Soft, No tenderness Extremities: No cyanosis, No edema, Other (1+ DP pulses bilaterally ) Skin: No rashes, No breakdown, No significant lesion Labs LABS Laboratory Tests Test 07/25/16 16:19 07/25/16 20:49 07/26/16 00:35 07/26/16 05:45 White Blood Count 5.5x10^3/uL (4.0-11.0) 5.5x10^3/uL (4.0-11.0) Red Blood Count 2.66x10^6/uL (4.30-5.70) 2.20x10^6/uL (4.30-5.70) Hemoglobin 9.3g/dL (13.0-17.5) 7.7g/dL (13.0-17.5) Hematocrit 27.4% (39.0-53.0) 22.7% (39.0-53.0) Mean Corpuscular Volume 103fL (79-100) 104fL (79-100) Mean Corpuscular Hemoglobin 35pg (25-35) 35pg (25-35) Mean Corpuscular Hemoglobin Concent 34g/dL (31-37) 34g/dL (31-37) Red Cell Distribution Width 14.6% (11.5-14.5) 14.7% (11.5-14.5) Platelet Count 216x10^3/uL (140-400) 180x10^3/uL (140-400) Neutrophils (%) (Auto) 64% (31-73) 64% (31-73) Lymphocytes (%) (Auto) 28% (24-48) 24% (24-48) Monocytes (%) (Auto) 5% (0-9) 10% (0-9) Eosinophils (%) (Auto) 3% (0-3) 2% (0-3) Basophils (%) (Auto) 0% (0-3) 1% (0-3) Neutrophils # (Auto) 3.5x10^3uL (1.8-7.7) 3.5x10^3uL (1.8-7.7) Lymphocytes # (Auto) 1.5x10^3/uL (1.0-4.8) 1.3x10^3/uL (1.0-4.8) Monocytes # (Auto) 0.3x10^3/uL (0.0-1.1) 0.5x10^3/uL (0.0-1.1) Eosinophils # (Auto) 0.2x10^3/uL (0.0-0.7) 0.1x10^3/uL (0.0-0.7) Basophils # (Auto) 0.0x10^3/uL (0.0-0.2) 0.0x10^3/uL (0.0-0.2) Prothrombin Time 12.8SEC (11.7-14.0) Prothromb Time International Ratio 1.0 (0.8-1.1) Sodium Level 144mmol/L (136-145) 140mmol/L (136-145) Potassium Level 3.9mmol/L (3.5-5.1) 4.3mmol/L (3.5-5.1) Chloride Level 101mmol/L (98-107) 100mmol/L (98-107) Carbon Dioxide Level 32mmol/L (21-32) 30mmol/L (21-32) Anion Gap 11 (6-14) 10 (6-14) Blood Urea Nitrogen 24mg/dL (8-26) 38mg/dL (8-26) Creatinine 2.8mg/dL (0.7-1.3) 4.2mg/dL (0.7-1.3) Estimated GFR (Cockcroft-Gault) 22.7 14.2 Glucose Level 257mg/dL (70-99) 447mg/dL (70-99) Calcium Level 9.2mg/dL (8.5-10.1) 8.4mg/dL (8.5-10.1) Magnesium Level 2.0mg/dL (1.8-2.4) 2.0mg/dL (1.8-2.4) Thyroid Stimulating Hormone (TSH) 1.428uIU/mL (0.358-3.74) Glucose (Fingerstick) 443mg/dL (70-99) Troponin I Quantitative 3.560ng/mL (0.000-0.055) 3.989ng/mL (0.000-0.055) Test 07/26/16 05:48 07/26/16 07:39 07/26/16 12:32 Triglycerides Level 110mg/dL (0-150) Cholesterol Level 111mg/dL (0-200) LDL Cholesterol, Calculated 52mg/dL (0-100) VLDL Cholesterol, Calculated 22mg/dL (0-40) HDL Cholesterol 37mg/dL (40-60) Cholesterol/HDL Ratio 3.0 Glucose (Fingerstick) 369mg/dL (70-99) 195mg/dL (70-99) Review of Systems Review of Systems no fever, chills, sob or chest pain Assessment and Plan Assessmemt and Plan Problems Medical Problems: (1) Atrial fibrillation with RVR Status: Acute (2) ESRD on dialysis Status: Acute Problems: Comment Review of Relevant I have reviewed the following items roma (where applicable) has been applied. Labs Laboratory Tests Test 07/25/16 16:19 07/25/16 20:49 07/26/16 00:35 07/26/16 05:45 White Blood Count 5.5x10^3/uL (4.0-11.0) 5.5x10^3/uL (4.0-11.0) Red Blood Count 2.66x10^6/uL (4.30-5.70) 2.20x10^6/uL (4.30-5.70) Hemoglobin 9.3g/dL (13.0-17.5) 7.7g/dL (13.0-17.5) Hematocrit 27.4% (39.0-53.0) 22.7% (39.0-53.0) Mean Corpuscular Volume 103fL (79-100) 104fL (79-100) Mean Corpuscular Hemoglobin 35pg (25-35) 35pg (25-35) Mean Corpuscular Hemoglobin Concent 34g/dL (31-37) 34g/dL (31-37) Red Cell Distribution Width 14.6% (11.5-14.5) 14.7% (11.5-14.5) Platelet Count 216x10^3/uL (140-400) 180x10^3/uL (140-400) Neutrophils (%) (Auto) 64% (31-73) 64% (31-73) Lymphocytes (%) (Auto) 28% (24-48) 24% (24-48) Monocytes (%) (Auto) 5% (0-9) 10% (0-9) Eosinophils (%) (Auto) 3% (0-3) 2% (0-3) Basophils (%) (Auto) 0% (0-3) 1% (0-3) Neutrophils # (Auto) 3.5x10^3uL (1.8-7.7) 3.5x10^3uL (1.8-7.7) Lymphocytes # (Auto) 1.5x10^3/uL (1.0-4.8) 1.3x10^3/uL (1.0-4.8) Monocytes # (Auto) 0.3x10^3/uL (0.0-1.1) 0.5x10^3/uL (0.0-1.1) Eosinophils # (Auto) 0.2x10^3/uL (0.0-0.7) 0.1x10^3/uL (0.0-0.7) Basophils # (Auto) 0.0x10^3/uL (0.0-0.2) 0.0x10^3/uL (0.0-0.2) Prothrombin Time 12.8SEC (11.7-14.0) Prothromb Time International Ratio 1.0 (0.8-1.1) Sodium Level 144mmol/L (136-145) 140mmol/L (136-145) Potassium Level 3.9mmol/L (3.5-5.1) 4.3mmol/L (3.5-5.1) Chloride Level 101mmol/L (98-107) 100mmol/L (98-107) Carbon Dioxide Level 32mmol/L (21-32) 30mmol/L (21-32) Anion Gap 11 (6-14) 10 (6-14) Blood Urea Nitrogen 24mg/dL (8-26) 38mg/dL (8-26) Creatinine 2.8mg/dL (0.7-1.3) 4.2mg/dL (0.7-1.3) Estimated GFR (Cockcroft-Gault) 22.7 14.2 Glucose Level 257mg/dL (70-99) 447mg/dL (70-99) Calcium Level 9.2mg/dL (8.5-10.1) 8.4mg/dL (8.5-10.1) Magnesium Level 2.0mg/dL (1.8-2.4) 2.0mg/dL (1.8-2.4) Thyroid Stimulating Hormone (TSH) 1.428uIU/mL (0.358-3.74) Glucose (Fingerstick) 443mg/dL (70-99) Troponin I Quantitative 3.560ng/mL (0.000-0.055) 3.989ng/mL (0.000-0.055) Test 07/26/16 05:48 07/26/16 07:39 07/26/16 12:32 Triglycerides Level 110mg/dL (0-150) Cholesterol Level 111mg/dL (0-200) LDL Cholesterol, Calculated 52mg/dL (0-100) VLDL Cholesterol, Calculated 22mg/dL (0-40) HDL Cholesterol 37mg/dL (40-60) Cholesterol/HDL Ratio 3.0 Glucose (Fingerstick) 369mg/dL (70-99) 195mg/dL (70-99) Laboratory Tests Test 07/25/16 16:19 07/25/16 20:49 07/26/16 00:35 07/26/16 05:45 White Blood Count 5.5x10^3/uL (4.0-11.0) 5.5x10^3/uL (4.0-11.0) Red Blood Count 2.66x10^6/uL (4.30-5.70) 2.20x10^6/uL (4.30-5.70) Hemoglobin 9.3g/dL (13.0-17.5) 7.7g/dL (13.0-17.5) Hematocrit 27.4% (39.0-53.0) 22.7% (39.0-53.0) Mean Corpuscular Volume 103fL (79-100) 104fL (79-100) Mean Corpuscular Hemoglobin 35pg (25-35) 35pg (25-35) Mean Corpuscular Hemoglobin Concent 34g/dL (31-37) 34g/dL (31-37) Red Cell Distribution Width 14.6% (11.5-14.5) 14.7% (11.5-14.5) Platelet Count 216x10^3/uL (140-400) 180x10^3/uL (140-400) Neutrophils (%) (Auto) 64% (31-73) 64% (31-73) Lymphocytes (%) (Auto) 28% (24-48) 24% (24-48) Monocytes (%) (Auto) 5% (0-9) 10% (0-9) Eosinophils (%) (Auto) 3% (0-3) 2% (0-3) Basophils (%) (Auto) 0% (0-3) 1% (0-3) Neutrophils # (Auto) 3.5x10^3uL (1.8-7.7) 3.5x10^3uL (1.8-7.7) Lymphocytes # (Auto) 1.5x10^3/uL (1.0-4.8) 1.3x10^3/uL (1.0-4.8) Monocytes # (Auto) 0.3x10^3/uL (0.0-1.1) 0.5x10^3/uL (0.0-1.1) Eosinophils # (Auto) 0.2x10^3/uL (0.0-0.7) 0.1x10^3/uL (0.0-0.7) Basophils # (Auto) 0.0x10^3/uL (0.0-0.2) 0.0x10^3/uL (0.0-0.2) Prothrombin Time 12.8SEC (11.7-14.0) Prothromb Time International Ratio 1.0 (0.8-1.1) Sodium Level 144mmol/L (136-145) 140mmol/L (136-145) Potassium Level 3.9mmol/L (3.5-5.1) 4.3mmol/L (3.5-5.1) Chloride Level 101mmol/L (98-107) 100mmol/L (98-107) Carbon Dioxide Level 32mmol/L (21-32) 30mmol/L (21-32) Anion Gap 11 (6-14) 10 (6-14) Blood Urea Nitrogen 24mg/dL (8-26) 38mg/dL (8-26) Creatinine 2.8mg/dL (0.7-1.3) 4.2mg/dL (0.7-1.3) Estimated GFR (Cockcroft-Gault) 22.7 14.2 Glucose Level 257mg/dL (70-99) 447mg/dL (70-99) Calcium Level 9.2mg/dL (8.5-10.1) 8.4mg/dL (8.5-10.1) Magnesium Level 2.0mg/dL (1.8-2.4) 2.0mg/dL (1.8-2.4) Thyroid Stimulating Hormone (TSH) 1.428uIU/mL (0.358-3.74) Glucose (Fingerstick) 443mg/dL (70-99) Troponin I Quantitative 3.560ng/mL (0.000-0.055) 3.989ng/mL (0.000-0.055) Test 07/26/16 05:48 07/26/16 07:39 07/26/16 12:32 Triglycerides Level 110mg/dL (0-150) Cholesterol Level 111mg/dL (0-200) LDL Cholesterol, Calculated 52mg/dL (0-100) VLDL Cholesterol, Calculated 22mg/dL (0-40) HDL Cholesterol 37mg/dL (40-60) Cholesterol/HDL Ratio 3.0 Glucose (Fingerstick) 369mg/dL (70-99) 195mg/dL (70-99) Medications Current Medications Diltiazem HCl 20 mg 20 mg 1X ONCE IVP Last administered on 07/25/16 17:26; Start 07/25/16 at 17:15; Stop 07/25/16 at 17:19; Status DC Diltiazem HCl 125 mg/Dextrose 125 ml @ 0 mls/hr CONT PRN IV SEE I/O RECORD Last administered on 07/25/16 17:31; Start 07/25/16 at 17:30; Stop 07/25/16 at 17:47; Status DC Diltiazem HCl/ Dextrose (Cardizem) 125 ml @ 0 mls/hr CONT PRN IV SEE I/O RECORD Last administered on 07/26/16 05:47; Start 07/25/16 at 17:45; Stop 07/26 at 10:50; Status DC Ondansetron HCl (Zofran) 4 mg PRN Q8HRS PRN IV NAUSEA/VOMITING; Start 07/25/16 at 17:45; Stop 07/25/16 at 18:09; Status DC Acetaminophen (Tylenol) 650 mg PRN Q4HRS PRN PO FEVER; Start 07/25/16 at 17:45 ; Stop 07/26/16 at 17:44 Ondansetron HCl (Zofran) 4 mg PRN Q6HRS PRN IV NAUSEA/VOMITING; Start 07/25/16 at 18:07 Insulin Aspart (Novolog) 0-9 UNITS TIDWMEALS SQ Last administered on 07/26/16 08:39; Start 07/26/16 at 08:00 Dextrose 12.5 gm PRN Q15MIN PRN IV SEE COMMENTS; Start 07/25/16 at 18:15 Aspirin (Ecotrin) 81 mg DAILY PO ; Start 07/26/16 at 09:00 Carvedilol (Coreg) 6.25 mg BIDWMEALS PO Last administered on 07/26/16 07:50; Start 07/25/16 at 22:45 Vitamin D (Vitamin D3) 5,000 unit WEEKLY PO ; Start 07/29/16 at 09:00 Acetaminophen/ Hydrocodone Bitart (Lortab 5/325) 1 tab PRN Q4HRS PRN PO PAIN; Start 07/25/16 at 22:45 Polyethylene Glycol (miraLAX PACKET) 17 gm HS PO ; Start 07/26/16 at 21:00 Tamsulosin HCl (Flomax) 0.8 mg HS PO ; Start 07/26/16 at 21:00; Stop 07/26/16 at 21:00; Status DC Calcium Acetate (Phoslo) 2 mg TIDWMEALS PO ; Start 07/26/16 at 08:00 Non-Formulary Medication 1 tab HS PO ; Start 07/26/16 at 21:00; Stop 07/26/16 at 21:00; Status DC Zolpidem Tartrate (Ambien) 5 mg PRN QHS PRN PO INSOMNIA; Start 07/25/16 at 22: 45 Insulin Detemir (Levemir) 10 units BIDWMEALS SQ Last administered on 07/26/16 08:39; Start 07/26/16 at 08:00 Non-Formulary Medication 1 tab HS PO ; Start 07/26/16 at 21:00; Stop 07/26/16 at 21:00; Status DC Tamsulosin HCl (Flomax) 0.8 mg HS PO Last administered on 07/25/16 23:57; Start 07/25/16 at 23:00 Atorvastatin Calcium (Lipitor) 10 mg HS PO Last administered on 07/25/16 23:57 ; Start 07/25/16 at 23:00 Risperidone (Risperdal) 0.5 mg HS PO Last administered on 07/25/16 23:58; Start 07/25/16 at 23:00 Insulin Aspart (Novolog) 0-7 UNITS QIDACHS SQ Last administered on 07/26/16 00 :12; Start 07/25/16 at 22:45 Dextrose 12.5 gm PRN Q15MIN PRN IV SEE COMMENTS; Start 07/25/16 at 22:45 Hydralazine HCl (Apresoline) 10 mg 1X ONCE IVP Last administered on 07/26/16 08:34; Start 07/26/16 at 08:30; Stop 07/26/16 at 08:31; Status DC Diltiazem HCl 30 mg 30 mg Q6HRS PO Last administered on 07/26/16 10:34; Start 07/26/16 at 10:30 Heparin Sodium/ Dextrose 500 ml @ 0 mls/hr CONT PRN IV SEE I/O RECORD Last administered on 07/26/16 10:45; Start 07/26/16 at 10:15 Heparin Sodium (Porcine) 2,100 unit PRN Q6HRS PRN IV FOR UFH LEVEL LESS THAN 0.2 Last administered on 07/26/16 10:45; Start 07/26/16 at 10:15 Lisinopril (Prinivil) 5 mg DAILY PO Last administered on 07/26/16 10:35; Start 07/26/16 at 10:30 Hydralazine HCl (Apresoline) 10 mg PRN Q4HRS PRN IVP ELEVATED BP, SEE COMMENTS ; Start 07/26/16 at 10:15 Darbepoetin Christopher (Aranesp) 60 mcg WEEKLYHS SQ ; Start 07/26/16 at 21:00 Lidocaine HCl 20 ml 20 ml STK-MED ONCE .ROUTE ; Start 07/26/16 at 14:48; Stop at 14:49; Status DC Heparin Sodium/ Sodium Chloride 500 ml @ As Directed STK-MED ONCE .ROUTE ; Start 07/26/16 at 14:48; Stop 07/26/16 at 14:49; Status DC Iodixanol (Visipaque 320) 100 ml STK-MED ONCE .ROUTE ; Start 07/26/16 at 14:48; Stop 07/26/16 at 14:49; Status DC Active Scripts Active Reported Novolog Flexpen (Insulin Aspart) 100 Unit/1 Ml Insuln.pen 1 Unit SQ QIDACHS per SSI protocol Melatonin 3 Mg Tab.rapdis 3 Mg PO PRN QHS PRN Aspir 81 (Aspirin) 81 Mg Tablet.dr 1 Tab PO DAILY Miralax (Polyethylene Glycol 3350) 17 Gm Powd.pack 1 Packet PO HS Vitamin D3 (Cholecalciferol (Vitamin D3)) 5,000 Unit Capsule 1 Cap PO WEEKLY on Monday Humulin N Kwikpen (Nph, Human Insulin Isophane) 100 Unit/1 Ml Insuln.pen 10 Units SQ BIDWMEALS Lovastatin 40 Mg Tablet 1 Tab PO HS Risperidone Odt (Risperidone) 0.5 Mg Tab.rapdis 1 Tab PO HS Carvedilol 6.25 Mg Tablet 1 Tab PO BID Calcium Acetate 667 Mg Tablet 2 Tab PO TIDWMEALS Hydrocodone-Apap 5-325 (Hydrocodone Bit/Acetaminophen) 1 Each Tablet 1 Tab PO PRN Q4HRS PRN Tamsulosin Hcl 0.4 Mg Cap.er.24h 2 Tab PO HS Vitals/I & O Vital Sign - Last 24 Hours 07/25/16 07/25/16 07/25/16 07/25/16 16:15 17:22 17:26 17:52 Temp 97.7 97.7 Pulse 134 122 147 78 Resp 16 17 21 B/P 144/71 174/96 174/96 197/79 Pulse Ox 97 95 96 O2 Delivery Room Air Room Air Room Air 07/25/16 07/25/16 07/25/16 07/25/16 18:22 19:30 19:30 20:30 Temp 97.2 97.2 97.2 97.2 Pulse 70 74 74 Resp 22 20 20 B/P 186/77 167/57 167/57 Pulse Ox 95 97 97 O2 Delivery Nasal Cannula Nasal Cannula Nasal Cannula Room Air O2 Flow Rate 2 2.0 2.0 07/25/16 07/25/16 07/25/16 07/25/16 21:30 22:30 23:15 23:59 Temp 99.0 99.0 Pulse 80 74 72 Resp 18 B/P 221/91 188/89 192/83 192/83 Pulse Ox 91 O2 Delivery Room Air 07/26/16 07/26/16 07/26/16 07/26/16 00:01 01:00 02:00 03:00 Temp 98.3 98.3 Pulse 58 60 Resp 18 B/P 223/88 156/82 179/74 153/65 Pulse Ox 95 O2 Delivery Room Air 07/26/16 07/26/16 07/26/16 07/26/16 04:00 05:00 06:00 07:35 Temp 97.7 97.7 Pulse 58 56 57 62 Resp 18 B/P 160/71 180/79 166/72 183/74 Pulse Ox 93 O2 Delivery Room Air 07/26/16 07/26/16 07/26/16 07/26/16 07:45 07:50 08:20 08:34 Pulse 62 62 62 Resp 18 B/P 183/74 203/84 203/84 Pulse Ox 96 O2 Delivery Room Air Room Air O2 Flow Rate 2.0 07/26/16 07/26/16 07/26/16 07/26/16 08:55 10:22 10:34 10:35 Pulse 62 67 67 67 Resp 18 20 B/P 160/70 155/91 155/91 155/91 Pulse Ox 98 O2 Delivery Room Air 07/26/16 14:39 Temp 98.2 98.2 Pulse 60 Resp 21 B/P 178/77 Pulse Ox 95 O2 Delivery Room Air Intake and Output 07/25/16 07/25/16 07/26/16 15:00 23:00 07:00 Intake Total 580 ml Output Total 200 ml Balance -200 ml 580 ml Nutrition Consultation Dietary Evaluation: Recommendations by RD: Dietary education by RD Comments: Educated pt on the diabetic and renal diets Provided education handouts on carb counting and nutrient lists for the potassium, phos and protein content of foods Expected Outcomes/Goals: meet 75% est nutr needs identify two foods on the renal/ada diet Malnutrition Findings: Malnutrition related to morbid: No Weight Status: Overweight SADI TRUJILLO MD Jul 26, 2016 15:01
--- NOTE | 2016-07-26 15:29 | CARD ---
APPROVED REPORT EXAM: Two-dimensional and M-mode echocardiogram with Doppler and color Doppler. Other Information Quality : Average Rhythm : Atrial Fibrillation INDICATION Atrial Fibrillation Murmur 2D DIMENSIONS RVDd3.0 (2.9-3.5cm)Left Atrium(2D)3.6 (1.6-4.0cm) IVSd1.2 (0.7-1.1cm)Aortic Root(2D)2.8 (2.0-3.7cm) LVDd4.8 (3.9-5.9cm)LVOT Diameter2.0 (1.8-2.4cm) PWd1.2 (0.7-1.1cm)LVDs3.0 (2.5-4.0cm) SV72.5 mlLVEF(%)54.1 (>50%) Aortic Valve AoV Peak Abundio.165.5cm/sAoV VTI45.8cm AO Peak GR.11.0mmHgLVOT VTI 29.65cm AO Mean GR.8mmHgAVA (VTI)2.10cm2 Mitral Valve MV E Wrqepbwk234.4cm/sMV E Peak Gr.5mmHg MV DECEL [id number] A Irhvcbqe66.7cm/s MV E Mean Gr.2mmHgMV WRH66rd E/A Ratio1.9MV A Yvozdnsp473ib MVA (PHT)2.89cm2 TDI Lateral E' P. V9.47cm/sMedial E' P. V6.81cm/s E/Lateral E'10.7E/Medial E'14.9 Tricuspid Valve TR P. Znvbmrrd202gk/sRAP [id number] TR Peak Gr.20ijRnAEEJ40qrDi Pulmonary Vein S1 Eewfqvyv28.9cm/sS2 Vinlfdxt94.49cm/s D2 Ubqakpsk04.5cm/s LEFT VENTRICLE The left ventricle is normal size. There is borderline concentric left ventricular hypertrophy. Left ventricle systolic function is normal. The Ejection Fraction is 55%. There is normal LV segmental wal l motion. The left ventricular diastolic function and filling is normal for age. RIGHT VENTRICLE The right ventricle is normal size. The right ventricular systolic function is normal. ATRIA The left atrium size is normal. The right atrium size is normal. The interatrial septum is intact wit h no evidence for an atrial septal defect or patent foramen ovale as noted on 2-D or Doppler imaging. AORTIC VALVE The aortic valve is normal in structure and function. The aortic valve is trileaflet. Doppler and Col or Flow revealed no significant aortic regurgitation. There is no aortic valvular vegetation. MITRAL VALVE The mitral valve is normal in structure and function. There is no mitral valve stenosis. Doppler and Color Flow revealed trace to mild mitral regurgitation. TRICUSPID VALVE The tricuspid valve is normal in structure and function. Doppler and Color Flow revealed mild tricusp id regurgitation. The PA pressure was estimated at 37 mmHg. There is no tricuspid valve stenosis. PULMONIC VALVE The pulmonic valve is not well visualized. Doppler and Color Flow revealed no pulmonic valvular regur gitation. There is no pulmonic valvular stenosis. GREAT VESSELS The aortic root is normal in size. Normal pulmonary venous flow (Doppler). The IVC is normal in size and collapses >50% with inspiration. PERICARDIAL EFFUSION There is no evidence of significant pericardial effusion. Critical Notification Critical Value: No <Conclusion> Left ventricle systolic function is normal. The Ejection Fraction is 55%. There is normal LV segmental wall motion. Trace to mild mitral regurgitation. Mild tricuspid regurgitation. The PA pressure was estimated at 37 mmHg. There is no evidence of significant pericardial effusion.
[2016-07-26] MEDS ORDERED: NITROGLYCERIN 200 MCG/2 ML SYRINGE FOR CATH/VASC LAB. ONE (15:33)
[2016-07-26] MEDS ORDERED: FENTANYL PF 100 MCG/2 ML VIAL. ONE (15:34)
[2016-07-26] MEDS ORDERED: VERAPAMIL 5 MG/2 ML VIAL. ONE (15:34)
[2016-07-26] MEDS ORDERED: MIDAZOLAM HCL 2 MG/2 ML VIAL. ONE (15:34)
[2016-07-26] MEDS ORDERED: HEPARIN for IV BOLUS 10,000 UNIT/10 ML VIAL. ONE (15:35)
--- NOTE | 2016-07-26 15:37 | PDOC ---
MODERATE SEDATION ASSESSMENT RISKS/ALTERNATIVES Risks/Alternatives Risks and alternatives of this type of sedation and procedure discussed with: RISK/ALTERNATIVES: Patient H & P ON CHART H & P H & P on chart and reviewed for co-morbid conditions and appropriate labs. H&P ON CHART: Yes STATUS PREG STATUS ASSESSED: N/A MEDS/ALLERGIES REVIEWED Meds/Allergies Reviewed Medications and Allergies including time and route of recently administered narcotics and sedatives. MEDS/ALLERGIES REVIEWED: Yes ASA RATING ASA RATING: II AIRWAY ASSESSMENT Airway Assessment Airway patency, oral function limitations, presence of caps, crowns, dentures, partials, and ability to extend neck assessed. AIRWAY ASSESSMENT: Yes MALLAMPATI SCORE MALLAMPATI SCORE: II PRE-SEDATION ASSESSMENT PRE-SEDATION ASSESSMENT: Yes REGINA LANG MD Jul 26, 2016 15:37
[2016-07-26] MEDS ORDERED: NICARDIPINE HCL 25 MG/10 ML VIAL. IV ONE (15:45)
[2016-07-26] MEDS ORDERED: HEPARIN for IV BOLUS 10,000 UNIT/10 ML VIAL. IART ONE (16:00)
[2016-07-26] MEDS ORDERED: LIDOCAINE 2% 20 ML VIAL. IJ ONE (16:00)
[2016-07-26] MEDS ORDERED: IODIXANOL 320 MG/ML 100 ML VIAL. IART ONE (16:00)
[2016-07-26] MEDS ORDERED: MIDAZOLAM HCL 2 MG/2 ML VIAL. IV ONE (16:00)
[2016-07-26] MEDS ORDERED: VERAPAMIL 5 MG/2 ML VIAL. IART ONE (16:00)
[2016-07-26] MEDS ORDERED: FENTANYL PF 100 MCG/2 ML VIAL. IV ONE (16:00)
[2016-07-26] MEDS ORDERED: NITROGLYCERIN 200 MCG/2 ML SYRINGE FOR CATH/VASC LAB. IART ONE (16:00)
--- NOTE | 2016-07-26 16:27 | CARD ---
APPROVED REPORT Procedure(s) performed: Left heart catheterization, selective coronary angiography and left ventricul ography via the right transradial approach INDICATION The indication(s) include : non-STEMI . PROCEDURE NARRATIVE After explaining the risks, benefits and alternative options, informed consent was obtained from aliya ent. Patient was brought to the cardiac [employer] and right wrist was prepped and draped in the usual fashion after confirming a positive modified Zeeshan's test. Arterial access was obtained in the [facility] radial artery and a 6 Scottish sheath was inserted. 6 Scottish Cr catheter and 6 Scottish JL 3.5 cat heters were used to perform selective angiography of the right and left coronary arteries. 6 Scottish pigtail catheter was used to perform left ventriculography. Patient tolerated the procedure well. H emostasis was achieved using TR band. There were no immediate complications. The following findings were noted. FINDINGS 1. Hemodynamics: Left ventricular end-diastolic pressure of 28 mmHg. No pullback gradient across th e aortic valve. 2. Left ventriculography: Normal left ventricle systolic function with ejection fraction estimated at 70%. No significant mitral regurgitation seen. 3. Coronary angiography: a. The left main coronary artery arose from the left sinus of Valsalva, gave rise to the left anteri or descending and left circumflex arteries and did not show any significant stenosis. b. The left anterior descending artery showed 40-50% stenosis in the midsegment. c. The left circumflex artery did not show any significant stenosis. d. The right coronary artery was a large and dominant vessel arising from the right sinus of Valsalv a that showed minimal luminal irregularities without any significant stenosis. Conclusion 1. Nonobstructive coronary artery disease 2. Normal left ventricle systolic function with ejection fraction estimated at 70%. Recommendations Patient's troponin level elevation is most probably from a combination of subendocardial ischemia fro m uncontrolled hypertension, atrial fibrillation with rapid ventricular response and renal insufficie ncy. Recommend medical management.
[2016-07-26] MEDS ORDERED: NICARDIPINE HCL IV ONE (16:45)
[2016-07-26] MEDS ORDERED: NORMAL SALINE IV ONE (16:45)
[2016-07-26] MEDS: DILTIAZEM HCL 30 MG TABLET PO SCH (18:00)
[2016-07-26] MEDS ORDERED: NON FORMULARY ITEM (Lovastatin 1 TAB) PO SCH (21:00)
[2016-07-26] MEDS ORDERED: TAMSULOSIN 0.4 MG CAP.ER.24H. PO SCH (21:00)
[2016-07-26] MEDS ORDERED: DARBEPOETIN ALFA 60 MCG/0.3 ML DISP.SYRIN. SQ SCH (21:00)
[2016-07-26] MEDS ORDERED: RISPERIDONE PO SCH (21:00)
[2016-07-26] MEDS: ATORVASTATIN CALCIUM 10 MG TABLET. PO SCH (21:32)
[2016-07-26] MEDS: TAMSULOSIN 0.4 MG CAP.ER.24H. PO SCH (21:32)
[2016-07-26] MEDS: risperiDONE 1 MG TABLET. PO SCH (21:33)
[2016-07-26] MEDS: POLYETHYLENE GLYCOL 3350 17 GM PACKET. PO SCH (21:33)
[2016-07-26] MEDS: INSULIN DETEMIR 300 UNITS/3 ML INSULN.PEN. SQ SCH (21:47)
--- NOTE | 2016-07-26 21:50 | ACF ---
Admission Forms Criteria ATRIAL FIBRILLATION Clinical Indications for Admission to Inpatient Care (Place 'X' for any and all applicable criteria): Admission indicated for ANY ONE of the following(1)(2)(3)(4)(5) : [ ]I. Myocardial ischemia [ ]II. Dyspnea or hypoxemia [ ]III. Hemodynamic instability [ ]IV. Heart failure (e.g., pulmonary edema) (7) [X]V. New-onset (less than 48 hours) atrial fibrillation with high risk for causing complications secondary to comorbidities (eg, symptomatic heart failure ) [ ]. Altered mental status [ ]VII. Syncope [ ]VIII. Patient has implantable cardioverter defibrillator that has fired more than once within past 24hr or needs immediate adjustment of settings that cannot be done other than in inpatient setting. (8) [ ]IX. Suspected accessory pathway (e.g., Hferw-Mwqflpxvi-Htqnb syndrome) on ECG [ ]X. Recent systemic thromboembolism (eg, stroke) [ ]XI. Medication toxicity (e.g., digitalis) causing arrhythmia(9) [ ]XII. Underlying medical condition that necessitates inpatient care (e.g., thyrotoxicosis, pneumonia) (10) [ ]XIII. Continuous ECG monitoring is required for condition causing arrhythmia (e.g., severe hyperkalemia, hypokalemia, acid-base disturbance).(11)(12)(13) [ ]XIV. Initiation of antiarrhythmic drug therapy is needed in patient at high risk of adverse effects as indicated by ANY ONE of the following: [ ]a) Significant structural heart disease (e.g., reduced ejection fraction, congenital heart disease, valvular heart disease) [ ]b) Prolonged QT interval [ ]c) Underlying sinus node or atrioventricular conduction disturbances [ ]d) Need for treatment with antiarrhythmic drugs that have significant proarrhythmic potential (e.g., dofetilide, sotalol, procainamide) [ ]e) Patient whose sinus rhythm has never been observed on ECG [ ]XV. Intolerable symptoms despite optimal outpatient treatment [ ]XVI. Elective or urgent cardioversion that cannot be performed on outpatient basis or during observation care. [A] (Use also Atrial Fibrillation: Observation Care ) as appropriate.(14) [ ]XVII.Contraindications and/or Inappropriate clinical situations for Observational Care in patients with Atrial Fibrillation, when ANY ONE of the following is required: [ ]a) Patient with High risk of cardiac embolism (e.g, patients with previous cardiac embolism, LVEF < 40%, age >75 and patients with prosthetic valve) 18 [ ]b) Patient with Moderate risk including DM patient, CAD and patient aged 65-75 18 [ ]c) Patient with any change in cardiac biomarker especially troponin should be managed as high risk in an inpatient setting 19 [ ]d) Physician judgement irrespective of ECG and other diagnostic findings 20 [ ]XVIII.General contraindications and/or Inappropriate clinical situations for Observational Care in patients with Atrial Fibrillation, when ANY ONE of the following is required: [ ]a) Prediction of prolongation of LOS based on ANY ONE of the following may be considered as a contraindication for observational care 2, 3, 4, 5, 6, 7, 8, 9, 10, 11 [ ]i) Age > 65 yrs. [ ]ii) Patient arriving by ambulance [ ]iii) Patient with high acuity [ ]iv) Patient requiring vital sign monitoring [ ]v) Patient on IV medication [ ]b) Systolic blood pressures 180mmHg 3,12 [ ]c) Patient with altered mental status including delirium and other alteration of consciousness3 [ ]d) Patient whose discharge disposition will be to a half-way home or rehabilitation home should not be managed in Emergency Department Observation Unit. CMS rule requires 3 days hospital stay before such placement.3,13 [ ]e) Patient with failure to thrive due to broad array of etiologies 3,16,17 [ ]f) Inability to ambulate 3,14 Extended stay beyond goal length of stay may be needed for (1)(25)(26): [ ]a) Unstable comorbidities [ ]b) Persistently uncontrolled atrial fibrillation or other arrhythmias [ ]c) Acute thromboembolic event (e.g., stroke, limb ischemia) [ ]d) Need for inpatient attainment of full anticoagulation The original [facility] content created by [employer] has been revised. The portions of the content which have been revised are identified through the use of italic text or in bold, and [facility] has neither reviewed nor approved the modified material. All other unmodified content is copyright [employer]. Please see references footnoted in the original [facility] edition 2016 Admission Criteria Met?: Yes ISABEL WESLEY Jul 26, 2016 21:50
[2016-07-27 02:35] VITALS: BP 172/68
[2016-07-27 05:46] LABS: HEMATOCRIT 22.2 % (39.0-53.0); HEMOGLOBIN 7.7 g/dL (13.0-17.5); RED BLOOD COUNT 2.18 x10^6/uL (4.30-5.70); RED CELL DISTRIBUTION WIDTH 14.4 % (11.5-14.5); WHITE BLOOD COUNT 5.1 x10^3/uL (4.0-11.0)
[2016-07-27 05:48] LABS: CALCIUM 8.6 mg/dL (8.5-10.1); CREATININE 5.7 mg/dL (0.7-1.3); POTASSIUM 4.2 mmol/L (3.5-5.1)
[2016-07-27] MEDS: DILTIAZEM HCL 30 MG TABLET PO SCH ×2 (06:45)
[2016-07-27 07:56] VITALS: BP 142/51
[2016-07-27] MEDS: ASPIRIN ENTERIC COATED 81 MG TABLET.DR. PO SCH (09:06)
[2016-07-27] MEDS: DILTIAZEM HCL 120 MG CAP.ER.24H PO SCH (09:06)
[2016-07-27] MEDS: CALCIUM ACETATE 667 MG CAPSULE PO SCH ×3 (09:13→18:34)
[2016-07-27] MEDS: INSULIN ASPART 300 UNITS/3 ML INSULN.PEN SQ SCH ×3 (09:17→18:38)
[2016-07-27] MEDS ORDERED: DIALYSIS PATIENT. MC PRN ×2 (10:30→11:45)
[2016-07-27 10:35] VITALS: BP 125/95
--- NOTE | 2016-07-27 10:43 | PDOC ---
Renal-Progress Notes Subjective Notes Notes NO COMPLAINTS History of Present Illness Hx of present illness NO CHANGE Vitals Vitals Vital Signs Date Time Temp Pulse Resp B/P Pulse Ox O2 Delivery O2 Flow Rate FiO2 07/27/16 10:35 98.2 64 18 125/95 94 Room Air 98.2 07/26/16 16:05 3.0 Weight Weight [ ] I.O. Intake and Output Intake and Output 07/27/16 07:00 Intake Total 1220 ml Output Total 850 ml Balance 370 ml Intake Oral 1200 ml IV Total 20 ml Output Urine Total 850 ml Labs Labs Laboratory Tests Test 07/26/16 12:32 07/26/16 16:39 07/26/16 21:07 07/27/16 04:19 Glucose (Fingerstick) 195mg/dL (70-99) 165mg/dL (70-99) 350mg/dL (70-99) White Blood Count 5.1x10^3/uL (4.0-11.0) Red Blood Count 2.18x10^6/uL (4.30-5.70) Hemoglobin 7.7g/dL (13.0-17.5) Hematocrit 22.2% (39.0-53.0) Mean Corpuscular Volume 102fL (79-100) Mean Corpuscular Hemoglobin 35pg (25-35) Mean Corpuscular Hemoglobin Concent 35g/dL (31-37) Red Cell Distribution Width 14.4% (11.5-14.5) Platelet Count 184x10^3/uL (140-400) Sodium Level 138mmol/L (136-145) Potassium Level 4.2mmol/L (3.5-5.1) Chloride Level 98mmol/L (98-107) Carbon Dioxide Level 30mmol/L (21-32) Anion Gap 10 (6-14) Blood Urea Nitrogen 58mg/dL (8-26) Creatinine 5.7mg/dL (0.7-1.3) Estimated GFR (Cockcroft-Gault) 10.0 Glucose Level 265mg/dL (70-99) Calcium Level 8.6mg/dL (8.5-10.1) Test 07/27/16 07:28 Glucose (Fingerstick) 187mg/dL (70-99) Review of Systems Constitutional: yes: no symptom reported Physical Exam General Appearance: no apparent distress Skin: warm Respiratory: decreased breath sounds Heart: S1S2 Abdomen: soft, bowel sounds present Neurology: alert, oriented Musculoskeletal: Osteoarthritis Assessment Assessment IMP AFIB RVR ANEMIA ESRD PLAN HD TODAY UF TO RAMONA OLIVIER MD Jul 27, 2016 10:43
--- NOTE | 2016-07-27 10:50 | PDOC ---
REHAN MORENO HEAD OF LOSS PREVENTION 07/27/16 1050: CARDIO Progress Notes Date and Time Date of Service 07/27/16 Time of Evaluation 1030 Subjective Subjective: No Chest Pain, No shortness of breath, No Palpitations Vitals Vitals Vital Signs Date Time Temp Pulse Resp B/P Pulse Ox O2 Delivery O2 Flow Rate FiO2 07/27/16 09:08 18 96 Room Air 07/27/16 09:06 75 07/27/16 07:56 98.2 142/51 98.2 07/26/16 16:05 3.0 Weight Weight [ ] Input and Output Intake and Output Intake and Output 07/27/16 07:00 Intake Total 1220 ml Output Total 850 ml Balance 370 ml Intake Oral 1200 ml IV Total 20 ml Output Urine Total 850 ml Laboratory Labs Laboratory Tests Test 07/26/16 12:32 07/26/16 16:39 07/26/16 21:07 07/27/16 04:19 Glucose (Fingerstick) 195mg/dL (70-99) 165mg/dL (70-99) 350mg/dL (70-99) White Blood Count 5.1x10^3/uL (4.0-11.0) Red Blood Count 2.18x10^6/uL (4.30-5.70) Hemoglobin 7.7g/dL (13.0-17.5) Hematocrit 22.2% (39.0-53.0) Mean Corpuscular Volume 102fL (79-100) Mean Corpuscular Hemoglobin 35pg (25-35) Mean Corpuscular Hemoglobin Concent 35g/dL (31-37) Red Cell Distribution Width 14.4% (11.5-14.5) Platelet Count 184x10^3/uL (140-400) Sodium Level 138mmol/L (136-145) Potassium Level 4.2mmol/L (3.5-5.1) Chloride Level 98mmol/L (98-107) Carbon Dioxide Level 30mmol/L (21-32) Anion Gap 10 (6-14) Blood Urea Nitrogen 58mg/dL (8-26) Creatinine 5.7mg/dL (0.7-1.3) Estimated GFR (Cockcroft-Gault) 10.0 Glucose Level 265mg/dL (70-99) Calcium Level 8.6mg/dL (8.5-10.1) Test 07/27/16 07:28 Glucose (Fingerstick) 187mg/dL (70-99) Physical Exam HEENT: Neck Supple W Full Motion Chest: Symmetric LUNGS: Clear to Auscultation Heart: S1S2, RRR, no thrills, no rubs, no jug vein distention Abdomen: Soft N/T Extremities: 2+ Dorsalis Pedis, No Edema Neurology: alert, oriented, follow commands Assessment Assessment 1. AFIB with RVR maintaining SR; rate controlled with Cardizem echo revealed normal LV function with mild MR and TR ASA for stroke prevention given episode of AFIB was <24hr plan for event monitor discharge to no AFIB burden/ guide further therapy F/u in 4wks as scheduled. 2. NSTEMI secondary to AFIB with RVR, malignant HTN, and kidney disease LHC revealed no obstruction CAD medical management 3. Malignant hypertension better controlled. hydralazine PRN 4. Hyperlipidemia LDL 52 resume statin 5. ESRD on HD 6. Diabetes, II uncontrolled. Management per PCP 7. Stage IV lung CA s/p radiation therapy follows with [facility] REGINA LANG MD 07/28/16 0828: CARDIO Progress Notes Assessment Assessment Patient seen and examined 07/27/16. Agree with NECKTIE TURNER's assessment and plan. Cardiac catheterization results noted above. Continue current medications. Plan for event monitor as an outpatient to assess atrial fibrillation burden. Follow-up with our office in one month. REHAN MORENO APRN Jul 27, 2016 10:50 REGINA LANG MD Jul 28, 2016 08:28
[2016-07-27] MEDS ORDERED: IV NORMAL SALINE 1000ML BAG 1,000 ML IV PRN ×2 (11:37)
[2016-07-27] MEDS ORDERED: ACETAMINOPHEN 500 MG TABLET PO PRN (11:45)
[2016-07-27] MEDS ORDERED: LABETALOL 20 MG/4 ML DISP.SYRIN. IVP PRN (11:45)
[2016-07-27] MEDS ORDERED: DIPHENHYDRAMINE 50 MG/ML VIAL IV PRN ×2 (11:45)
--- NOTE | 2016-07-27 14:07 | PDOC ---
PROGRESS NOTES Chief Complaint Chief Complaint - New onset atrial fib RVR, CHADS 3 - ESDR on HD MWF - obesity - HTN - DM 2, on insulin- chronic stable History of Present Illness History of Present Illness Pt. was in hemodialysis unit at the time of evaluation, had no new complains, atrial fib with RVR is well controlled so pt. is off of cardizem drip, sinus now , probable discharge tomorrow. Vitals Vitals Vital Signs Date Time Temp Pulse Resp B/P Pulse Ox O2 Delivery O2 Flow Rate FiO2 07/27/16 10:35 98.2 64 18 125/95 94 Room Air 98.2 07/26/16 16:05 3.0 Physical Exam General: Alert, Oriented X3, Cooperative, No acute distress Heart: Regular rate, Normal S1, Other (IRREGULARLY IRREGULAR) Lungs: Clear Abdomen: Soft, No tenderness Extremities: No cyanosis, No edema, Other (1+ DP pulses bilaterally ) Skin: No rashes, No breakdown, No significant lesion Labs LABS Laboratory Tests Test 07/26/16 16:39 07/26/16 21:07 07/27/16 04:19 07/27/16 07:28 Glucose (Fingerstick) 165mg/dL (70-99) 350mg/dL (70-99) 187mg/dL (70-99) White Blood Count 5.1x10^3/uL (4.0-11.0) Red Blood Count 2.18x10^6/uL (4.30-5.70) Hemoglobin 7.7g/dL (13.0-17.5) Hematocrit 22.2% (39.0-53.0) Mean Corpuscular Volume 102fL (79-100) Mean Corpuscular Hemoglobin 35pg (25-35) Mean Corpuscular Hemoglobin Concent 35g/dL (31-37) Red Cell Distribution Width 14.4% (11.5-14.5) Platelet Count 184x10^3/uL (140-400) Sodium Level 138mmol/L (136-145) Potassium Level 4.2mmol/L (3.5-5.1) Chloride Level 98mmol/L (98-107) Carbon Dioxide Level 30mmol/L (21-32) Anion Gap 10 (6-14) Blood Urea Nitrogen 58mg/dL (8-26) Creatinine 5.7mg/dL (0.7-1.3) Estimated GFR (Cockcroft-Gault) 10.0 Glucose Level 265mg/dL (70-99) Calcium Level 8.6mg/dL (8.5-10.1) Test 07/27/16 11:57 Glucose (Fingerstick) 189mg/dL (70-99) Review of Systems Review of Systems Afebrile, denies SOB, denies chest pain, denies palpitations, denies pain in left leg while moving. Assessment and Plan Assessmemt and Plan ASSESSMENT - Atrial fib with RVR, resolved - ESRD on dialysis PLAN - Repeat routine labs - PT/OT - Probable discharge tomorrow - continue prn left leg pain medication - appreciate subspeciality inputs Problems Problems: Comment Review of Relevant I have reviewed the following items roma (where applicable) has been applied. Labs Laboratory Tests Test 07/25/16 16:19 07/25/16 20:49 07/26/16 00:35 07/26/16 05:45 White Blood Count 5.5x10^3/uL (4.0-11.0) 5.5x10^3/uL (4.0-11.0) Red Blood Count 2.66x10^6/uL (4.30-5.70) 2.20x10^6/uL (4.30-5.70) Hemoglobin 9.3g/dL (13.0-17.5) 7.7g/dL (13.0-17.5) Hematocrit 27.4% (39.0-53.0) 22.7% (39.0-53.0) Mean Corpuscular Volume 103fL (79-100) 104fL (79-100) Mean Corpuscular Hemoglobin 35pg (25-35) 35pg (25-35) Mean Corpuscular Hemoglobin Concent 34g/dL (31-37) 34g/dL (31-37) Red Cell Distribution Width 14.6% (11.5-14.5) 14.7% (11.5-14.5) Platelet Count 216x10^3/uL (140-400) 180x10^3/uL (140-400) Neutrophils (%) (Auto) 64% (31-73) 64% (31-73) Lymphocytes (%) (Auto) 28% (24-48) 24% (24-48) Monocytes (%) (Auto) 5% (0-9) 10% (0-9) Eosinophils (%) (Auto) 3% (0-3) 2% (0-3) Basophils (%) (Auto) 0% (0-3) 1% (0-3) Neutrophils # (Auto) 3.5x10^3uL (1.8-7.7) 3.5x10^3uL (1.8-7.7) Lymphocytes # (Auto) 1.5x10^3/uL (1.0-4.8) 1.3x10^3/uL (1.0-4.8) Monocytes # (Auto) 0.3x10^3/uL (0.0-1.1) 0.5x10^3/uL (0.0-1.1) Eosinophils # (Auto) 0.2x10^3/uL (0.0-0.7) 0.1x10^3/uL (0.0-0.7) Basophils # (Auto) 0.0x10^3/uL (0.0-0.2) 0.0x10^3/uL (0.0-0.2) Prothrombin Time 12.8SEC (11.7-14.0) Prothromb Time International Ratio 1.0 (0.8-1.1) Sodium Level 144mmol/L (136-145) 140mmol/L (136-145) Potassium Level 3.9mmol/L (3.5-5.1) 4.3mmol/L (3.5-5.1) Chloride Level 101mmol/L (98-107) 100mmol/L (98-107) Carbon Dioxide Level 32mmol/L (21-32) 30mmol/L (21-32) Anion Gap 11 (6-14) 10 (6-14) Blood Urea Nitrogen 24mg/dL (8-26) 38mg/dL (8-26) Creatinine 2.8mg/dL (0.7-1.3) 4.2mg/dL (0.7-1.3) Estimated GFR (Cockcroft-Gault) 22.7 14.2 Glucose Level 257mg/dL (70-99) 447mg/dL (70-99) Calcium Level 9.2mg/dL (8.5-10.1) 8.4mg/dL (8.5-10.1) Magnesium Level 2.0mg/dL (1.8-2.4) 2.0mg/dL (1.8-2.4) Thyroid Stimulating Hormone (TSH) 1.428uIU/mL (0.358-3.74) Glucose (Fingerstick) 443mg/dL (70-99) Troponin I Quantitative 3.560ng/mL (0.000-0.055) 3.989ng/mL (0.000-0.055) Test 07/26/16 05:48 07/26/16 07:39 07/26/16 12:32 07/26/16 16:39 Triglycerides Level 110mg/dL (0-150) Cholesterol Level 111mg/dL (0-200) LDL Cholesterol, Calculated 52mg/dL (0-100) VLDL Cholesterol, Calculated 22mg/dL (0-40) HDL Cholesterol 37mg/dL (40-60) Cholesterol/HDL Ratio 3.0 Glucose (Fingerstick) 369mg/dL (70-99) 195mg/dL (70-99) 165mg/dL (70-99) Test 07/26/16 21:07 07/27/16 04:19 07/27/16 07:28 07/27/16 11:57 Glucose (Fingerstick) 350mg/dL (70-99) 187mg/dL (70-99) 189mg/dL (70-99) White Blood Count 5.1x10^3/uL (4.0-11.0) Red Blood Count 2.18x10^6/uL (4.30-5.70) Hemoglobin 7.7g/dL (13.0-17.5) Hematocrit 22.2% (39.0-53.0) Mean Corpuscular Volume 102fL (79-100) Mean Corpuscular Hemoglobin 35pg (25-35) Mean Corpuscular Hemoglobin Concent 35g/dL (31-37) Red Cell Distribution Width 14.4% (11.5-14.5) Platelet Count 184x10^3/uL (140-400) Sodium Level 138mmol/L (136-145) Potassium Level 4.2mmol/L (3.5-5.1) Chloride Level 98mmol/L (98-107) Carbon Dioxide Level 30mmol/L (21-32) Anion Gap 10 (6-14) Blood Urea Nitrogen 58mg/dL (8-26) Creatinine 5.7mg/dL (0.7-1.3) Estimated GFR (Cockcroft-Gault) 10.0 Glucose Level 265mg/dL (70-99) Calcium Level 8.6mg/dL (8.5-10.1) Laboratory Tests Test 07/26/16 16:39 07/26/16 21:07 07/27/16 04:19 07/27/16 07:28 Glucose (Fingerstick) 165mg/dL (70-99) 350mg/dL (70-99) 187mg/dL (70-99) White Blood Count 5.1x10^3/uL (4.0-11.0) Red Blood Count 2.18x10^6/uL (4.30-5.70) Hemoglobin 7.7g/dL (13.0-17.5) Hematocrit 22.2% (39.0-53.0) Mean Corpuscular Volume 102fL (79-100) Mean Corpuscular Hemoglobin 35pg (25-35) Mean Corpuscular Hemoglobin Concent 35g/dL (31-37) Red Cell Distribution Width 14.4% (11.5-14.5) Platelet Count 184x10^3/uL (140-400) Sodium Level 138mmol/L (136-145) Potassium Level 4.2mmol/L (3.5-5.1) Chloride Level 98mmol/L (98-107) Carbon Dioxide Level 30mmol/L (21-32) Anion Gap 10 (6-14) Blood Urea Nitrogen 58mg/dL (8-26) Creatinine 5.7mg/dL (0.7-1.3) Estimated GFR (Cockcroft-Gault) 10.0 Glucose Level 265mg/dL (70-99) Calcium Level 8.6mg/dL (8.5-10.1) Test 07/27/16 11:57 Glucose (Fingerstick) 189mg/dL (70-99) Medications Current Medications Diltiazem HCl 20 mg 20 mg 1X ONCE IVP Last administered on 07/25/16 17:26; Start 07/25/16 at 17:15; Stop 07/25/16 at 17:19; Status DC Diltiazem HCl 125 mg/Dextrose 125 ml @ 0 mls/hr CONT PRN IV SEE I/O RECORD Last administered on 07/25/16 17:31; Start 07/25/16 at 17:30; Stop 07/25/16 at 17:47; Status DC Diltiazem HCl/ Dextrose (Cardizem) 125 ml @ 0 mls/hr CONT PRN IV SEE I/O RECORD Last administered on 07/26/16 05:47; Start 07/25/16 at 17:45; Stop 07/26 at 10:50; Status DC Ondansetron HCl (Zofran) 4 mg PRN Q8HRS PRN IV NAUSEA/VOMITING; Start 07/25/16 at 17:45; Stop 07/25/16 at 18:09; Status DC Acetaminophen (Tylenol) 650 mg PRN Q4HRS PRN PO FEVER; Start 07/25/16 at 17:45 ; Stop 07/26/16 at 17:44; Status DC Ondansetron HCl (Zofran) 4 mg PRN Q6HRS PRN IV NAUSEA/VOMITING; Start 07/25/16 at 18:07 Insulin Aspart (Novolog) 0-9 UNITS TIDWMEALS SQ Last administered on 07/27/16 09:17; Start 07/26/16 at 08:00 Dextrose 12.5 gm PRN Q15MIN PRN IV SEE COMMENTS; Start 07/25/16 at 18:15; Stop 07/27/16 at 10:15; Status DC Aspirin (Ecotrin) 81 mg DAILY PO Last administered on 07/27/16 09:06; Start at 09:00 Carvedilol (Coreg) 6.25 mg BIDWMEALS PO Last administered on 07/26/16 07:50; Start 07/25/16 at 22:45; Stop 07/26/16 at 16:07; Status DC Vitamin D (Vitamin D3) 5,000 unit WEEKLY PO ; Start 07/29/16 at 09:00 Acetaminophen/ Hydrocodone Bitart (Lortab 5/325) 1 tab PRN Q4HRS PRN PO PAIN Last administered on 07/27/16 09:08; Start 07/25/16 at 22:45 Polyethylene Glycol (miraLAX PACKET) 17 gm HS PO Last administered on 21:33; Start 07/26/16 at 21:00 Tamsulosin HCl (Flomax) 0.8 mg HS PO ; Start 07/26/16 at 21:00; Stop 07/26/16 at 21:00; Status DC Calcium Acetate (Phoslo) 2 mg TIDWMEALS PO Last administered on 07/27/16 09:13 ; Start 07/26/16 at 08:00; Stop 07/27/16 at 09:25; Status DC Non-Formulary Medication 1 tab HS PO ; Start 07/26/16 at 21:00; Stop 07/26/16 at 21:00; Status DC Zolpidem Tartrate (Ambien) 5 mg PRN QHS PRN PO INSOMNIA; Start 07/25/16 at 22: 45 Insulin Detemir (Levemir) 10 units BIDWMEALS SQ Last administered on 07/26/16 08:39; Start 07/26/16 at 08:00; Stop 07/26/16 at 15:00; Status DC Non-Formulary Medication 1 tab HS PO ; Start 07/26/16 at 21:00; Stop 07/26/16 at 21:00; Status DC Tamsulosin HCl (Flomax) 0.8 mg HS PO Last administered on 07/26/16 21:32; Start 07/25/16 at 23:00 Atorvastatin Calcium (Lipitor) 10 mg HS PO Last administered on 07/26/16 21:32 ; Start 07/25/16 at 23:00 Risperidone (Risperdal) 0.5 mg HS PO Last administered on 07/26/16 21:33; Start 07/25/16 at 23:00 Insulin Aspart (Novolog) 0-7 UNITS QIDACHS SQ Last administered on 07/26/16 00 :12; Start 07/25/16 at 22:45; Stop 07/26/16 at 15:00; Status DC Dextrose 12.5 gm PRN Q15MIN PRN IV SEE COMMENTS; Start 07/25/16 at 22:45 Hydralazine HCl (Apresoline) 10 mg 1X ONCE IVP Last administered on 07/26/16 08:34; Start 07/26/16 at 08:30; Stop 07/26/16 at 08:31; Status DC Diltiazem HCl 30 mg 30 mg Q6HRS PO Last administered on 07/26/16 10:34; Start 07/26/16 at 10:30; Stop 07/26/16 at 16:07; Status DC Heparin Sodium/ Dextrose 500 ml @ 0 mls/hr CONT PRN IV SEE I/O RECORD Last administered on 07/26/16 10:45; Start 07/26/16 at 10:15; Stop 07/27/16 at 10:15 ; Status DC Heparin Sodium (Porcine) 2,100 unit PRN Q6HRS PRN IV FOR UFH LEVEL LESS THAN 0.2 Last administered on 07/26/16 10:45; Start 07/26/16 at 10:15; Stop 07/27/16 at 10:16; Status DC Lisinopril (Prinivil) 5 mg DAILY PO Last administered on 07/26/16 10:35; Start 07/26/16 at 10:30; Stop 07/27/16 at 08:42; Status DC Hydralazine HCl (Apresoline) 10 mg PRN Q4HRS PRN IVP ELEVATED BP, SEE COMMENTS ; Start 07/26/16 at 10:15 Darbepoetin Christopher (Aranesp) 60 mcg WEEKLYHS SQ Last administered on 07/26/16 21 :35; Start 07/26/16 at 21:00 Lidocaine HCl 20 ml 20 ml STK-MED ONCE .ROUTE ; Start 07/26/16 at 14:48; Stop at 14:49; Status DC Heparin Sodium/ Sodium Chloride 500 ml @ As Directed STK-MED ONCE .ROUTE ; Start 07/26/16 at 14:48; Stop 07/26/16 at 14:49; Status DC Iodixanol (Visipaque 320) 100 ml STK-MED ONCE .ROUTE ; Start 07/26/16 at 14:48; Stop 07/26/16 at 14:49; Status DC Insulin Detemir (Levemir) 20 units QHS SQ Last administered on 07/26/16 21:47 ; Start 07/26/16 at 21:00 Nitroglycerin (Nitroglycerin) 200 mcg STK-MED ONCE .ROUTE ; Start 07/26/16 at 15 :33; Stop 07/26/16 at 15:34; Status DC Verapamil HCl (Verapamil) 5 mg STK-MED ONCE .ROUTE ; Start 07/26/16 at 15:34; Stop 07/26/16 at 15:35; Status DC Midazolam HCl (Versed) 2 mg STK-MED ONCE .ROUTE ; Start 07/26/16 at 15:34; Stop 07/26/16 at 15:35; Status DC Fentanyl Citrate (Fentanyl 2ml Vial) 100 mcg STK-MED ONCE .ROUTE ; Start at 15:34; Stop 07/26/16 at 15:35; Status DC Heparin Sodium (Porcine) 10,000 unit STK-MED ONCE .ROUTE ; Start 07/26/16 at 15: 35; Stop 07/26/16 at 15:36; Status DC Nicardipine HCl (Cardene) 25 mg STK-MED ONCE IV ; Start 07/26/16 at 15:45; Stop 07/26/16 at 15:46; Status DC Nitroglycerin (Nitroglycerin) 200 mcg 1X ONCE IART Last administered on 16:00; Start 07/26/16 at 16:00; Stop 07/26/16 at 16:01; Status DC Verapamil HCl (Verapamil) 2.5 mg 1X ONCE IART Last administered on 07/26/16 16:00; Start 07/26/16 at 16:00; Stop 07/26/16 at 16:01; Status DC Heparin Sodium (Porcine) 2,500 unit 1X ONCE IART Last administered on 16:00; Start 07/26/16 at 16:00; Stop 07/26/16 at 16:01; Status DC Heparin Sodium/ Sodium Chloride 1,000 unit 1X ONCE IART Last administered on 16:00; Start 07/26/16 at 16:00; Stop 07/26/16 at 16:01; Status DC Midazolam HCl (Versed) 2 mg 1X ONCE IV Last administered on 07/26/16 15:30; Start 07/26/16 at 16:00; Stop 07/26/16 at 16:01; Status DC Fentanyl Citrate (Fentanyl 2ml Vial) 100 mcg 1X ONCE IV Last administered on 15:30; Start 07/26/16 at 16:00; Stop 07/26/16 at 16:01; Status DC Iodixanol (Visipaque 320) 100 ml 1X ONCE IART Last administered on 07/26/16 16:00; Start 07/26/16 at 16:00; Stop 07/26/16 at 16:01; Status DC Lidocaine HCl 20 ml 1X ONCE IJ Last administered on 07/26/16 16:00; Start at 16:00; Stop 07/26/16 at 16:01; Status DC Diltiazem HCl (Cardizem) 30 mg Q6HRS PO Last administered on 07/27/16 06:45; Start 07/26/16 at 18:00; Stop 07/27/16 at 06:00; Status DC Diltiazem HCl 120 mg 120 mg DAILY PO Last administered on 07/27/16 09:06; Start 07/27/16 at 09:00 Nicardipine HCl/ Sodium Chloride (Cardene/Iv Sodium Chloride 0.9% 50ml) 10.2 ml @ 122.4 mls/ hr 1X ONCE IV Last administered on 07/26/16 15:25; Start at 16:45; Stop 07/26/16 at 16:49; Status DC Calcium Acetate (Phoslo) 1,334 mg TIDWMEALS PO ; Start 07/27/16 at 12:00 Info (PHARMACY MONITORING -- do not chart) 1 each PRN DAILY PRN MC SEE COMMENTS ; Start 07/27/16 at 10:30 Lisinopril 10 mg 10 mg DAILY PO ; Start 07/27/16 at 11:00 Sodium Chloride (Iv Sodium Chloride 0.9% 1000ml Bag) 1,000 ml @ 1,000 mls/hr Q1H PRN IV hypotension; Start 07/27/16 at 11:37; Stop 07/27/16 at 17:36 Acetaminophen (Tylenol) 500 mg 1X PRN PRN PO MILD PAIN / TEMP; Start 07/27/16 at 11:45; Stop 07/28/16 at 11:44 Diphenhydramine HCl (Benadryl) 25 mg 1X PRN PRN IV ITCHING; Start 07/27/16 at 11 :45; Stop 07/28/16 at 11:44 Diphenhydramine HCl (Benadryl) 25 mg 1X PRN PRN IV ITCHING; Start 07/27/16 at 11 :45; Stop 07/28/16 at 11:44 Labetalol HCl 10 mg 10 mg PRN Q1HR PRN IVP SBP > 180; Start 07/27/16 at 11:45; Stop 07/28/16 at 11:44 Sodium Chloride (Iv Sodium Chloride 0.9% 1000ml Bag) 1,000 ml @ 400 mls/hr Q2H30M PRN IV PATENCY; Start 07/27/16 at 11:37; Stop 07/27/16 at 23:36 Info (PHARMACY MONITORING -- do not chart) 1 each PRN DAILY PRN MC SEE COMMENTS ; Start 07/27/16 at 11:45 Active Scripts Active Reported Novolog Flexpen (Insulin Aspart) 100 Unit/1 Ml Insuln.pen 1 Unit SQ QIDACHS per SSI protocol Melatonin 3 Mg Tab.rapdis 3 Mg PO PRN QHS PRN Aspir 81 (Aspirin) 81 Mg Tablet.dr 1 Tab PO DAILY Miralax (Polyethylene Glycol 3350) 17 Gm Powd.pack 1 Packet PO HS Vitamin D3 (Cholecalciferol (Vitamin D3)) 5,000 Unit Capsule 1 Cap PO WEEKLY on Monday Humulin N Kwikpen (Nph, Human Insulin Isophane) 100 Unit/1 Ml Insuln.pen 10 Units SQ BIDWMEALS Lovastatin 40 Mg Tablet 1 Tab PO HS Risperidone Odt (Risperidone) 0.5 Mg Tab.rapdis 1 Tab PO HS Carvedilol 6.25 Mg Tablet 1 Tab PO BID Calcium Acetate 667 Mg Tablet 2 Tab PO TIDWMEALS Hydrocodone-Apap 5-325 (Hydrocodone Bit/Acetaminophen) 1 Each Tablet 1 Tab PO PRN Q4HRS PRN Tamsulosin Hcl 0.4 Mg Cap.er.24h 2 Tab PO HS Vitals/I & O Vital Sign - Last 24 Hours 07/26/16 07/26/16 07/26/16 07/26/16 14:39 15:30 16:00 16:05 Temp 98.2 98.2 Pulse 60 75 75 Resp 21 20 20 B/P 178/77 133/56 Pulse Ox 95 96 95 O2 Delivery Room Air Nasal Cannula Nasal Cannula O2 Flow Rate 3.0 3.0 07/26/16 07/26/16 07/26/16 07/26/16 18:00 19:25 19:30 22:50 Temp 98.1 97.8 98.1 97.8 Pulse 75 67 74 Resp 20 18 B/P 133/56 144/64 171/70 Pulse Ox 95 96 O2 Delivery Room Air Room Air Room Air 07/27/16 07/27/16 07/27/16 07/27/16 00:00 02:35 06:45 07:56 Temp 98.4 98.2 98.4 98.2 Pulse 74 78 78 75 Resp 18 18 B/P 171/70 172/68 172/68 142/51 Pulse Ox 95 94 O2 Delivery Room Air Room Air 07/27/16 07/27/16 07/27/16 07/27/16 09:06 09:08 10:08 10:35 Temp 98.2 98.2 Pulse 75 64 Resp 18 18 18 B/P 125/95 Pulse Ox 96 95 94 O2 Delivery Room Air Room Air Room Air Intake and Output 07/26/16 07/26/16 07/27/16 15:00 23:00 07:00 Intake Total 20 ml 300 ml 900 ml Output Total 400 ml 450 ml Balance -380 ml -150 ml 900 ml Nutrition Consultation Dietary Evaluation: Recommendations by RD: Dietary education by RD Comments: Educated pt on the diabetic and renal diets Provided education handouts on carb counting and nutrient lists for the potassium, phos and protein content of foods Expected Outcomes/Goals: meet 75% est nutr needs identify two foods on the renal/ada diet Malnutrition Findings: Malnutrition related to morbid: No Weight Status: Overweight CHAGONIAL K III DO Jul 27, 2016 14:07
[2016-07-27] MEDS: LISINOPRIL 10 MG TABLET PO SCH (18:37)
[2016-07-27 19:23] VITALS: BP 197/90
[2016-07-27 19:51] VITALS: BP 156/68
[2016-07-27] MEDS: POLYETHYLENE GLYCOL 3350 17 GM PACKET. PO SCH (21:00)
[2016-07-27] MEDS: risperiDONE 1 MG TABLET. PO SCH (21:03)
[2016-07-27] MEDS: TAMSULOSIN 0.4 MG CAP.ER.24H. PO SCH (21:04)
[2016-07-27] MEDS: ATORVASTATIN CALCIUM 10 MG TABLET. PO SCH (21:04)
[2016-07-27] MEDS: INSULIN DETEMIR 300 UNITS/3 ML INSULN.PEN. SQ SCH (21:11)
[2016-07-27 22:55] VITALS: BP 168/73
[2016-07-28 02:48] VITALS: BP 177/77
[2016-07-28 04:14] LABS: BASO % 0 % (0-3); EOS % 3 % (0-3); HEMATOCRIT 21.8 % (39.0-53.0); HEMOGLOBIN 7.7 g/dL (13.0-17.5); LYMPH # 1.4 x10^3/uL (1.0-4.8); LYMPH % 30 % (24-48); MEAN CORPUSCULAR HEMOGLOBIN 36 pg (25-35); MEAN CORPUSCULAR HGB CONC 35 g/dL (31-37); MEAN CORPUSCULAR VOLUME 102 fL (79-100); MONO % 12 % (0-9); NEUT % 55 % (31-73); PLATELET COUNT 176 x10^3/uL (140-400); RED BLOOD COUNT 2.15 x10^6/uL (4.30-5.70); RED CELL DISTRIBUTION WIDTH 14.7 % (11.5-14.5); WHITE BLOOD COUNT 4.6 x10^3/uL (4.0-11.0)
[2016-07-28 04:29] LABS: CALCIUM 8.4 mg/dL (8.5-10.1); CREATININE 3.5 mg/dL (0.7-1.3); GFR 17.6; POTASSIUM 4.3 mmol/L (3.5-5.1)
[2016-07-28 07:53] VITALS: BP 143/63
[2016-07-28] MEDS: ASPIRIN ENTERIC COATED 81 MG TABLET.DR. PO SCH (08:40)
[2016-07-28] MEDS: CALCIUM ACETATE 667 MG CAPSULE PO SCH ×2 (08:40→11:42)
[2016-07-28] MEDS: LISINOPRIL 10 MG TABLET PO SCH (08:41)
[2016-07-28] MEDS: DILTIAZEM HCL 120 MG CAP.ER.24H PO SCH (08:41)
[2016-07-28] MEDS: INSULIN ASPART 300 UNITS/3 ML INSULN.PEN SQ SCH ×2 (08:49→11:41)
[2016-07-28 10:39] VITALS: BP 133/62
--- NOTE | 2016-07-28 12:55 | PDOC ---
PROGRESS NOTES Chief Complaint Chief Complaint - New onset atrial fib RVR, CHADS 3 - resolved - ESDR on HD MWF - obesity - HTN - DM 2, on insulin- chronic stable History of Present Illness History of Present Illness Pt. was awake, alert, and had no new complains. No acute event reported overnight. atrial fib with RVR well controlled, sinus now, approaching his baseline, probable discharge home today. Vitals Vitals Vital Signs Date Time Temp Pulse Resp B/P Pulse Ox O2 Delivery O2 Flow Rate FiO2 07/28/16 10:39 98.2 58 17 133/62 97 Room Air 98.2 Physical Exam General: Alert, Oriented X3, Cooperative, No acute distress Heart: Regular rate, Normal S1, Other Lungs: Clear Abdomen: Soft, No tenderness Extremities: No cyanosis, No edema, Other Skin: No rashes, No breakdown, No significant lesion Labs LABS Laboratory Tests Test 07/27/16 20:38 07/28/16 03:30 07/28/16 08:10 07/28/16 11:29 Glucose (Fingerstick) 366mg/dL (70-99) 235mg/dL (70-99) 124mg/dL (70-99) White Blood Count 4.6x10^3/uL (4.0-11.0) Red Blood Count 2.15x10^6/uL (4.30-5.70) Hemoglobin 7.7g/dL (13.0-17.5) Hematocrit 21.8% (39.0-53.0) Mean Corpuscular Volume 102fL (79-100) Mean Corpuscular Hemoglobin 36pg (25-35) Mean Corpuscular Hemoglobin Concent 35g/dL (31-37) Red Cell Distribution Width 14.7% (11.5-14.5) Platelet Count 176x10^3/uL (140-400) Neutrophils (%) (Auto) 55% (31-73) Lymphocytes (%) (Auto) 30% (24-48) Monocytes (%) (Auto) 12% (0-9) Eosinophils (%) (Auto) 3% (0-3) Basophils (%) (Auto) 0% (0-3) Neutrophils # (Auto) 2.6x10^3uL (1.8-7.7) Lymphocytes # (Auto) 1.4x10^3/uL (1.0-4.8) Monocytes # (Auto) 0.5x10^3/uL (0.0-1.1) Eosinophils # (Auto) 0.1x10^3/uL (0.0-0.7) Basophils # (Auto) 0.0x10^3/uL (0.0-0.2) Sodium Level 139mmol/L (136-145) Potassium Level 4.3mmol/L (3.5-5.1) Chloride Level 101mmol/L (98-107) Carbon Dioxide Level 27mmol/L (21-32) Anion Gap 11 (6-14) Blood Urea Nitrogen 37mg/dL (8-26) Creatinine 3.5mg/dL (0.7-1.3) Estimated GFR (Cockcroft-Gault) 17.6 Glucose Level 364mg/dL (70-99) Calcium Level 8.4mg/dL (8.5-10.1) Hepatitis B Surface Antigen Negative (Negative) Review of Systems Review of Systems No new complains reported, afebrile, no SOB and CP, no palpitations and left leg pain well controlled with prn medications, probable home discharge today. Assessment and Plan Assessmemt and Plan ASSESSMENT - Atrial fib with RVR, resolved - ESRD on dialysis PLAN - Probable discharge home today - if no discharge Repeat routine labs - PT/OT - continue prn left leg pain medication - appreciate subspeciality inputs Problems Problems Problems: Comment Review of Relevant I have reviewed the following items roma (where applicable) has been applied. Labs Laboratory Tests Test 07/26/16 16:39 07/26/16 21:07 07/27/16 04:19 07/27/16 07:28 Glucose (Fingerstick) 165mg/dL (70-99) 350mg/dL (70-99) 187mg/dL (70-99) White Blood Count 5.1x10^3/uL (4.0-11.0) Red Blood Count 2.18x10^6/uL (4.30-5.70) Hemoglobin 7.7g/dL (13.0-17.5) Hematocrit 22.2% (39.0-53.0) Mean Corpuscular Volume 102fL (79-100) Mean Corpuscular Hemoglobin 35pg (25-35) Mean Corpuscular Hemoglobin Concent 35g/dL (31-37) Red Cell Distribution Width 14.4% (11.5-14.5) Platelet Count 184x10^3/uL (140-400) Sodium Level 138mmol/L (136-145) Potassium Level 4.2mmol/L (3.5-5.1) Chloride Level 98mmol/L (98-107) Carbon Dioxide Level 30mmol/L (21-32) Anion Gap 10 (6-14) Blood Urea Nitrogen 58mg/dL (8-26) Creatinine 5.7mg/dL (0.7-1.3) Estimated GFR (Cockcroft-Gault) 10.0 Glucose Level 265mg/dL (70-99) Calcium Level 8.6mg/dL (8.5-10.1) Test 07/27/16 11:57 07/27/16 20:38 07/28/16 03:30 07/28/16 08:10 Glucose (Fingerstick) 189mg/dL (70-99) 366mg/dL (70-99) 235mg/dL (70-99) White Blood Count 4.6x10^3/uL (4.0-11.0) Red Blood Count 2.15x10^6/uL (4.30-5.70) Hemoglobin 7.7g/dL (13.0-17.5) Hematocrit 21.8% (39.0-53.0) Mean Corpuscular Volume 102fL (79-100) Mean Corpuscular Hemoglobin 36pg (25-35) Mean Corpuscular Hemoglobin Concent 35g/dL (31-37) Red Cell Distribution Width 14.7% (11.5-14.5) Platelet Count 176x10^3/uL (140-400) Neutrophils (%) (Auto) 55% (31-73) Lymphocytes (%) (Auto) 30% (24-48) Monocytes (%) (Auto) 12% (0-9) Eosinophils (%) (Auto) 3% (0-3) Basophils (%) (Auto) 0% (0-3) Neutrophils # (Auto) 2.6x10^3uL (1.8-7.7) Lymphocytes # (Auto) 1.4x10^3/uL (1.0-4.8) Monocytes # (Auto) 0.5x10^3/uL (0.0-1.1) Eosinophils # (Auto) 0.1x10^3/uL (0.0-0.7) Basophils # (Auto) 0.0x10^3/uL (0.0-0.2) Sodium Level 139mmol/L (136-145) Potassium Level 4.3mmol/L (3.5-5.1) Chloride Level 101mmol/L (98-107) Carbon Dioxide Level 27mmol/L (21-32) Anion Gap 11 (6-14) Blood Urea Nitrogen 37mg/dL (8-26) Creatinine 3.5mg/dL (0.7-1.3) Estimated GFR (Cockcroft-Gault) 17.6 Glucose Level 364mg/dL (70-99) Calcium Level 8.4mg/dL (8.5-10.1) Hepatitis B Surface Antigen Negative (Negative) Test 07/28/16 11:29 Glucose (Fingerstick) 124mg/dL (70-99) Laboratory Tests Test 07/27/16 20:38 07/28/16 03:30 07/28/16 08:10 07/28/16 11:29 Glucose (Fingerstick) 366mg/dL (70-99) 235mg/dL (70-99) 124mg/dL (70-99) White Blood Count 4.6x10^3/uL (4.0-11.0) Red Blood Count 2.15x10^6/uL (4.30-5.70) Hemoglobin 7.7g/dL (13.0-17.5) Hematocrit 21.8% (39.0-53.0) Mean Corpuscular Volume 102fL (79-100) Mean Corpuscular Hemoglobin 36pg (25-35) Mean Corpuscular Hemoglobin Concent 35g/dL (31-37) Red Cell Distribution Width 14.7% (11.5-14.5) Platelet Count 176x10^3/uL (140-400) Neutrophils (%) (Auto) 55% (31-73) Lymphocytes (%) (Auto) 30% (24-48) Monocytes (%) (Auto) 12% (0-9) Eosinophils (%) (Auto) 3% (0-3) Basophils (%) (Auto) 0% (0-3) Neutrophils # (Auto) 2.6x10^3uL (1.8-7.7) Lymphocytes # (Auto) 1.4x10^3/uL (1.0-4.8) Monocytes # (Auto) 0.5x10^3/uL (0.0-1.1) Eosinophils # (Auto) 0.1x10^3/uL (0.0-0.7) Basophils # (Auto) 0.0x10^3/uL (0.0-0.2) Sodium Level 139mmol/L (136-145) Potassium Level 4.3mmol/L (3.5-5.1) Chloride Level 101mmol/L (98-107) Carbon Dioxide Level 27mmol/L (21-32) Anion Gap 11 (6-14) Blood Urea Nitrogen 37mg/dL (8-26) Creatinine 3.5mg/dL (0.7-1.3) Estimated GFR (Cockcroft-Gault) 17.6 Glucose Level 364mg/dL (70-99) Calcium Level 8.4mg/dL (8.5-10.1) Hepatitis B Surface Antigen Negative (Negative) Medications Current Medications Diltiazem HCl 20 mg 20 mg 1X ONCE IVP Last administered on 07/25/16 17:26; Start 07/25/16 at 17:15; Stop 07/25/16 at 17:19; Status DC Diltiazem HCl 125 mg/Dextrose 125 ml @ 0 mls/hr CONT PRN IV SEE I/O RECORD Last administered on 07/25/16 17:31; Start 07/25/16 at 17:30; Stop 07/25/16 at 17:47; Status DC Diltiazem HCl/ Dextrose (Cardizem) 125 ml @ 0 mls/hr CONT PRN IV SEE I/O RECORD Last administered on 07/26/16 05:47; Start 07/25/16 at 17:45; Stop 07/26 at 10:50; Status DC Ondansetron HCl (Zofran) 4 mg PRN Q8HRS PRN IV NAUSEA/VOMITING; Start 07/25/16 at 17:45; Stop 07/25/16 at 18:09; Status DC Acetaminophen (Tylenol) 650 mg PRN Q4HRS PRN PO FEVER; Start 07/25/16 at 17:45 ; Stop 07/26/16 at 17:44; Status DC Ondansetron HCl (Zofran) 4 mg PRN Q6HRS PRN IV NAUSEA/VOMITING; Start 07/25/16 at 18:07 Insulin Aspart (Novolog) 0-9 UNITS TIDWMEALS SQ Last administered on 07/28/16 08:49; Start 07/26/16 at 08:00 Dextrose 12.5 gm PRN Q15MIN PRN IV SEE COMMENTS; Start 07/25/16 at 18:15; Stop 07/27/16 at 10:15; Status DC Aspirin (Ecotrin) 81 mg DAILY PO Last administered on 07/28/16 08:40; Start at 09:00 Carvedilol (Coreg) 6.25 mg BIDWMEALS PO Last administered on 07/26/16 07:50; Start 07/25/16 at 22:45; Stop 07/26/16 at 16:07; Status DC Vitamin D (Vitamin D3) 5,000 unit WEEKLY PO ; Start 07/29/16 at 09:00 Acetaminophen/ Hydrocodone Bitart (Lortab 5/325) 1 tab PRN Q4HRS PRN PO PAIN Last administered on 07/27/16 09:08; Start 07/25/16 at 22:45 Polyethylene Glycol (miraLAX PACKET) 17 gm HS PO Last administered on 21:33; Start 07/26/16 at 21:00 Tamsulosin HCl (Flomax) 0.8 mg HS PO ; Start 07/26/16 at 21:00; Stop 07/26/16 at 21:00; Status DC Calcium Acetate (Phoslo) 2 mg TIDWMEALS PO Last administered on 07/27/16 09:13 ; Start 07/26/16 at 08:00; Stop 07/27/16 at 09:25; Status DC Non-Formulary Medication 1 tab HS PO ; Start 07/26/16 at 21:00; Stop 07/26/16 at 21:00; Status DC Zolpidem Tartrate (Ambien) 5 mg PRN QHS PRN PO INSOMNIA; Start 07/25/16 at 22: 45 Insulin Detemir (Levemir) 10 units BIDWMEALS SQ Last administered on 07/26/16 08:39; Start 07/26/16 at 08:00; Stop 07/26/16 at 15:00; Status DC Non-Formulary Medication 1 tab HS PO ; Start 07/26/16 at 21:00; Stop 07/26/16 at 21:00; Status DC Tamsulosin HCl (Flomax) 0.8 mg HS PO Last administered on 07/27/16 21:04; Start 07/25/16 at 23:00 Atorvastatin Calcium (Lipitor) 10 mg HS PO Last administered on 07/27/16 21:04 ; Start 07/25/16 at 23:00 Risperidone (Risperdal) 0.5 mg HS PO Last administered on 07/27/16 21:03; Start 07/25/16 at 23:00 Insulin Aspart (Novolog) 0-7 UNITS QIDACHS SQ Last administered on 07/26/16 00 :12; Start 07/25/16 at 22:45; Stop 07/26/16 at 15:00; Status DC Dextrose 12.5 gm PRN Q15MIN PRN IV SEE COMMENTS; Start 07/25/16 at 22:45 Hydralazine HCl (Apresoline) 10 mg 1X ONCE IVP Last administered on 07/26/16 08:34; Start 07/26/16 at 08:30; Stop 07/26/16 at 08:31; Status DC Diltiazem HCl 30 mg 30 mg Q6HRS PO Last administered on 07/26/16 10:34; Start 07/26/16 at 10:30; Stop 07/26/16 at 16:07; Status DC Heparin Sodium/ Dextrose 500 ml @ 0 mls/hr CONT PRN IV SEE I/O RECORD Last administered on 07/26/16 10:45; Start 07/26/16 at 10:15; Stop 07/27/16 at 10:15 ; Status DC Heparin Sodium (Porcine) 2,100 unit PRN Q6HRS PRN IV FOR UFH LEVEL LESS THAN 0.2 Last administered on 07/26/16 10:45; Start 07/26/16 at 10:15; Stop 07/27/16 at 10:16; Status DC Lisinopril (Prinivil) 5 mg DAILY PO Last administered on 07/26/16 10:35; Start 07/26/16 at 10:30; Stop 07/27/16 at 08:42; Status DC Hydralazine HCl (Apresoline) 10 mg PRN Q4HRS PRN IVP ELEVATED BP, SEE COMMENTS ; Start 07/26/16 at 10:15 Darbepoetin Christopher (Aranesp) 60 mcg WEEKLYHS SQ Last administered on 07/26/16 21 :35; Start 07/26/16 at 21:00 Lidocaine HCl 20 ml 20 ml STK-MED ONCE .ROUTE ; Start 07/26/16 at 14:48; Stop at 14:49; Status DC Heparin Sodium/ Sodium Chloride 500 ml @ As Directed STK-MED ONCE .ROUTE ; Start 07/26/16 at 14:48; Stop 07/26/16 at 14:49; Status DC Iodixanol (Visipaque 320) 100 ml STK-MED ONCE .ROUTE ; Start 07/26/16 at 14:48; Stop 07/26/16 at 14:49; Status DC Insulin Detemir (Levemir) 20 units QHS SQ Last administered on 07/27/16 21:11; Start 07/26/16 at 21:00 Nitroglycerin (Nitroglycerin) 200 mcg STK-MED ONCE .ROUTE ; Start 07/26/16 at 15 :33; Stop 07/26/16 at 15:34; Status DC Verapamil HCl (Verapamil) 5 mg STK-MED ONCE .ROUTE ; Start 07/26/16 at 15:34; Stop 07/26/16 at 15:35; Status DC Midazolam HCl (Versed) 2 mg STK-MED ONCE .ROUTE ; Start 07/26/16 at 15:34; Stop 07/26/16 at 15:35; Status DC Fentanyl Citrate (Fentanyl 2ml Vial) 100 mcg STK-MED ONCE .ROUTE ; Start at 15:34; Stop 07/26/16 at 15:35; Status DC Heparin Sodium (Porcine) 10,000 unit STK-MED ONCE .ROUTE ; Start 07/26/16 at 15: 35; Stop 07/26/16 at 15:36; Status DC Nicardipine HCl (Cardene) 25 mg STK-MED ONCE IV ; Start 07/26/16 at 15:45; Stop 07/26/16 at 15:46; Status DC Nitroglycerin (Nitroglycerin) 200 mcg 1X ONCE IART Last administered on 16:00; Start 07/26/16 at 16:00; Stop 07/26/16 at 16:01; Status DC Verapamil HCl (Verapamil) 2.5 mg 1X ONCE IART Last administered on 07/26/16 16:00; Start 07/26/16 at 16:00; Stop 07/26/16 at 16:01; Status DC Heparin Sodium (Porcine) 2,500 unit 1X ONCE IART Last administered on 16:00; Start 07/26/16 at 16:00; Stop 07/26/16 at 16:01; Status DC Heparin Sodium/ Sodium Chloride 1,000 unit 1X ONCE IART Last administered on 16:00; Start 07/26/16 at 16:00; Stop 07/26/16 at 16:01; Status DC Midazolam HCl (Versed) 2 mg 1X ONCE IV Last administered on 07/26/16 15:30; Start 07/26/16 at 16:00; Stop 07/26/16 at 16:01; Status DC Fentanyl Citrate (Fentanyl 2ml Vial) 100 mcg 1X ONCE IV Last administered on 15:30; Start 07/26/16 at 16:00; Stop 07/26/16 at 16:01; Status DC Iodixanol (Visipaque 320) 100 ml 1X ONCE IART Last administered on 07/26/16 16:00; Start 07/26/16 at 16:00; Stop 07/26/16 at 16:01; Status DC Lidocaine HCl 20 ml 1X ONCE IJ Last administered on 07/26/16 16:00; Start at 16:00; Stop 07/26/16 at 16:01; Status DC Diltiazem HCl (Cardizem) 30 mg Q6HRS PO Last administered on 07/27/16 06:45; Start 07/26/16 at 18:00; Stop 07/27/16 at 06:00; Status DC Diltiazem HCl 120 mg 120 mg DAILY PO Last administered on 07/28/16 08:41; Start 07/27/16 at 09:00 Nicardipine HCl/ Sodium Chloride (Cardene/Iv Sodium Chloride 0.9% 50ml) 10.2 ml @ 122.4 mls/ hr 1X ONCE IV Last administered on 07/26/16 15:25; Start at 16:45; Stop 07/26/16 at 16:49; Status DC Calcium Acetate (Phoslo) 1,334 mg TIDWMEALS PO Last administered on 07/28/16 11 :42; Start 07/27/16 at 12:00 Info (PHARMACY MONITORING -- do not chart) 1 each PRN DAILY PRN MC SEE COMMENTS ; Start 07/27/16 at 10:30; Stop 07/28/16 at 07:19; Status DC Lisinopril 10 mg 10 mg DAILY PO Last administered on 07/28/16 08:41; Start 07/27 at 11:00 Sodium Chloride (Iv Sodium Chloride 0.9% 1000ml Bag) 1,000 ml @ 1,000 mls/hr Q1H PRN IV hypotension; Start 07/27/16 at 11:37; Stop 07/27/16 at 17:36; Status DC Acetaminophen (Tylenol) 500 mg 1X PRN PRN PO MILD PAIN / TEMP Last administered on 07/27/16 19:50; Start 07/27/16 at 11:45; Stop 07/28/16 at 11:44; Status DC Diphenhydramine HCl (Benadryl) 25 mg 1X PRN PRN IV ITCHING; Start 07/27/16 at 11 :45; Stop 07/28/16 at 11:44; Status DC Diphenhydramine HCl (Benadryl) 25 mg 1X PRN PRN IV ITCHING; Start 07/27/16 at 11 :45; Stop 07/28/16 at 11:44; Status DC Labetalol HCl 10 mg 10 mg PRN Q1HR PRN IVP SBP > 180; Start 07/27/16 at 11:45; Stop 07/28/16 at 11:44; Status DC Sodium Chloride (Iv Sodium Chloride 0.9% 1000ml Bag) 1,000 ml @ 400 mls/hr Q2H30M PRN IV PATENCY; Start 07/27/16 at 11:37; Stop 07/27/16 at 23:36; Status DC Info (PHARMACY MONITORING -- do not chart) 1 each PRN DAILY PRN MC SEE COMMENTS ; Start 07/27/16 at 11:45 Active Scripts Active Reported Novolog Flexpen (Insulin Aspart) 100 Unit/1 Ml Insuln.pen 1 Unit SQ QIDACHS per SSI protocol Melatonin 3 Mg Tab.rapdis 3 Mg PO PRN QHS PRN Aspir 81 (Aspirin) 81 Mg Tablet.dr 1 Tab PO DAILY Miralax (Polyethylene Glycol 3350) 17 Gm Powd.pack 1 Packet PO HS Vitamin D3 (Cholecalciferol (Vitamin D3)) 5,000 Unit Capsule 1 Cap PO WEEKLY on Monday Humulin N Kwikpen (Nph, Human Insulin Isophane) 100 Unit/1 Ml Insuln.pen 10 Units SQ BIDWMEALS Lovastatin 40 Mg Tablet 1 Tab PO HS Risperidone Odt (Risperidone) 0.5 Mg Tab.rapdis 1 Tab PO HS Carvedilol 6.25 Mg Tablet 1 Tab PO BID Calcium Acetate 667 Mg Tablet 2 Tab PO TIDWMEALS Hydrocodone-Apap 5-325 (Hydrocodone Bit/Acetaminophen) 1 Each Tablet 1 Tab PO PRN Q4HRS PRN Tamsulosin Hcl 0.4 Mg Cap.er.24h 2 Tab PO HS Vitals/I & O Vital Sign - Last 24 Hours 07/27/16 07/27/16 07/27/16 07/27/16 18:37 19:23 19:45 19:51 Temp 98.6 98.6 Pulse 71 74 74 Resp 18 B/P 168/106 197/90 156/68 Pulse Ox 92 O2 Delivery Room Air Room Air 07/27/16 07/28/16 07/28/16 07/28/16 22:55 02:48 07:53 08:00 Temp 99.1 98.4 98.4 99.1 98.4 98.4 Pulse 78 78 66 Resp 18 18 B/P 168/73 177/77 143/63 Pulse Ox 94 91 97 O2 Delivery Room Air Room Air Room Air Room Air 07/28/16 07/28/16 07/28/16 08:41 08:41 10:39 Temp 98.2 98.2 Pulse 66 66 58 Resp 17 B/P 143/63 143/63 133/62 Pulse Ox 97 O2 Delivery Room Air Intake and Output 07/27/16 07/27/16 07/28/16 15:00 23:00 07:00 Intake Total 280 ml 500 ml Output Total 300 ml 100 ml Balance -20 ml 400 ml Nutrition Consultation Dietary Evaluation: Recommendations by RD: Dietary education by RD Comments: Educated pt on the diabetic and renal diets Provided education handouts on carb counting and nutrient lists for the potassium, phos and protein content of foods Expected Outcomes/Goals: meet 75% est nutr needs identify two foods on the renal/ada diet Malnutrition Findings: Malnutrition related to morbid: No Weight Status: Overweight TENISHA ANDERS III DO Jul 28, 2016 12:55
[2016-07-29] MEDS ORDERED: CHOLECALCIFEROL (VITAMIN D3) 5,000 UNIT CAPSULE PO SCH (09:00)
== END 2016-07-28 13:20 | disposition home or self-care (01) | DRG 280 ==
LOC: ER 16:20 → 2 SOUTH 17:20
PROVIDERS: ADMIT Internal Medicine; ATTEND Internal Medicine
PROC: 4A023N7 Measurement of Cardiac Sampling and Pressure, Left Heart, Percutaneous Approach (ICD-10-PCS; principal; 2016-07-26)
PROC: B2111ZZ Fluoroscopy of Multiple Coronary Arteries using Low Osmolar Contrast (ICD-10-PCS; 2016-07-26)
PROC: B2151ZZ Fluoroscopy of Left Heart using Low Osmolar Contrast (ICD-10-PCS; 2016-07-26)
PROC: 5A1D00Z (ICD-10-PCS; 2016-07-27)
DX: I21.4 Non-ST elevation (NSTEMI) myocardial infarction (principal); N18.6 End stage renal disease; I12.0 Hypertensive chronic kidney disease with stage 5 chronic kidney disease or end stage renal disease; D64.9 Anemia, unspecified; E11.22 Type 2 diabetes mellitus with diabetic chronic kidney disease; I48.91 Unspecified atrial fibrillation; E11.65 Type 2 diabetes mellitus with hyperglycemia; E66.9 Obesity, unspecified; E78.5 Hyperlipidemia, unspecified; F17.200 Nicotine dependence, unspecified, uncomplicated; Z79.4 Long term (current) use of insulin; Z79.899 Other long term (current) drug therapy; Z82.49 Family history of ischemic heart disease and other diseases of the circulatory system; Z88.0 Allergy status to penicillin; Z68.29 Body mass index [BMI] 29.0-29.9, adult; Z83.3 Family history of diabetes mellitus; Z85.118 Personal history of other malignant neoplasm of bronchus and lung; Z92.3 Personal history of irradiation; Z99.2 Dependence on renal dialysis
CPT/HCPCS: 36415; 71010; 80048; 80061; 82947; 83735; 84443; 84484; 85027; 85610; 87340; 87341; 93005; 93306; 93458; 96365; 96375; 99406; C1769; C1892; J0360; J0881; J1815; J2250; J3010; J3490; 97110; 97530; 97535; 99285-25

== ENCOUNTER 2016-08-08 16:39 | Emergency (ER) | payer MEDICARE ==
[~2016-08-08] VITALS: Ht 167.6 cm; Wt 81.6 kg
[~2016-08-08 16:39] MED LIST: ASPI-482 PO; CALC667T PO; CARV6.252 PO; CHOL5000 PO; HYDR-2666 PO; INSU100I17 SQ; LOVA40TA2 PO; MELA3TAB12 PO; NPH,100I3 SQ; POLY17PO5 PO; RISP0.5T5 PO; TAMS0.4C2 PO
[2016-08-08] MEDS ORDERED: IV NORMAL SALINE 500ML BAG 500 ML IV ONE (17:45)
[2016-08-08] MEDS ORDERED: DILTIAZEM IV PUSH 25 MG/5 ML VIAL. IVP ONE ×2 (17:45→18:00)
[2016-08-08 17:48] LABS: BASO % 0 % (0-3); EOS % 2 % (0-3); HEMATOCRIT 25.2 % (39.0-53.0); HEMOGLOBIN 8.8 g/dL (13.0-17.5); LYMPH # 1.1 x10^3/uL (1.0-4.8); LYMPH % 17 % (24-48); MEAN CORPUSCULAR HEMOGLOBIN 37 pg (25-35); MEAN CORPUSCULAR HGB CONC 35 g/dL (31-37); MEAN CORPUSCULAR VOLUME 105 fL (79-100); MONO % 8 % (0-9); NEUT % 73 % (31-73); PLATELET COUNT 201 x10^3/uL (140-400); RED BLOOD COUNT 2.41 x10^6/uL (4.30-5.70); RED CELL DISTRIBUTION WIDTH 14.9 % (11.5-14.5); WHITE BLOOD COUNT 6.4 x10^3/uL (4.0-11.0)
--- NOTE | 2016-08-08 17:48 | EKG ---
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
[2016-08-08 18:01] LABS: CALCIUM 8.5 mg/dL (8.5-10.1); CREATININE 2.8 mg/dL (0.7-1.3); GFR 22.7; POTASSIUM 3.3 mmol/L (3.5-5.1)
[2016-08-08 18:04] LABS: PROTHROMBIN TIME PATIENT 12.8 SEC (11.7-14.0)
[2016-08-08 18:07] LABS: ALBUMIN 3.1 g/dL (3.4-5.0); ALBUMIN/GLOBULIN RATIO 0.9 (1.0-1.7); TOTAL BILIRUBIN 0.3 mg/dL (0.2-1.0); TOTAL PROTEIN 6.7 g/dL (6.4-8.2)
--- NOTE | 2016-08-08 18:43 | PHYS DOC ---
Past Medical History Past Medical History: Cancer, Diabetes-Type I, Hypertension, Renal Failure Additional Past Medical Histor: CATARACTS, Stage IV Lung CA Past Surgical History: Tonsillectomy, Other Additional Past Surgical Histo: AB HERNIA REPAIR,DIALYSIS SHUNT L ARM Alcohol Use: None Drug Use: None Adult General Chief Complaint Chief Complaint: OTHER COMPLAINTS HPI HPI 66-year-old male with multiple medical problems including end-stage renal disease on dialysis presents from the dialysis unit secondary to an irregular heart rhythm. It was also noted that his blood pressure was low at dialysis. Patient denies any chest pain. He states that they took 5 kg off today which most days is too much. [] Review of Systems Review of Systems Constitutional: Denies fever or chills [] Eyes: Denies change in visual acuity, redness, or eye pain [] HENT: Denies nasal congestion or sore throat [] Respiratory: Denies cough or shortness of breath [] Cardiovascular: Palpitations [] GI: Denies abdominal pain, nausea, vomiting, bloody stools or diarrhea [] : Denies dysuria or hematuria [] Musculoskeletal: Denies back pain or joint pain [] Integument: Denies rash or skin lesions [] Neurologic: Denies headache, focal weakness or sensory changes [] Endocrine: Denies polyuria or polydipsia [] Current Medications Current Medications Current Medications Medications (Trade) Dose Ordered Sig/Jessie Start Time Stop Time Status Last Admin Dose Admin Diltiazem HCl (Cardizem) 10 mg 1X ONCE 08/08/16 18:00 08/08/16 18:01 DC Diltiazem HCl 20 mg 20 mg 1X ONCE 08/08/16 17:45 08/08/16 17:46 DC Sodium Chloride (Iv Sodium Chloride 0.9% 500ml Bag) 500 ml @ 0 mls/hr 1X ONCE 08/08/16 17:45 08/08/16 17:46 DC 08/08/16 17:48 500 MLS/HR Allergies Allergies Allergies Coded Allergies Type Severity Reaction Last Updated Verified Penicillins Allergy Intermediate Hives 07/25/16 Yes Physical Exam Physical Exam Constitutional: Well developed, well nourished, no acute distress, non-toxic appearance. [] HENT: Normocephalic, atraumatic, bilateral external ears normal, oropharynx moist, no oral exudates, nose normal. [] Eyes: PERRLA, EOMI, conjunctiva normal, no discharge. [] Neck: Normal range of motion, no tenderness, supple, no stridor. [] Cardiovascular:Heart rate regular rhythm, no murmur [] Lungs & Thorax: Bilateral breath sounds clear to auscultation [] Abdomen: Bowel sounds normal, soft, no tenderness, no masses, no pulsatile masses. [] Skin: Warm, dry, no erythema, no rash. [] Back: No tenderness, no CVA tenderness. [] Extremities: No tenderness, no cyanosis, no clubbing, ROM intact, no edema. [] Neurologic: Alert and oriented X 3, normal motor function, normal sensory function, no focal deficits noted. [] Psychologic: Affect normal, judgement normal, mood normal. [] Current Patient Data Vital Signs Vital Signs Date Time Temp Pulse Resp B/P Pulse Ox O2 Delivery O2 Flow Rate FiO2 08/08/16 16:40 97.9 127 16 140/60 95 Room Air 97.9 Lab Values Laboratory Tests Test 08/08/16 17:04 White Blood Count 6.4x10^3/uL (4.0-11.0) Red Blood Count 2.41x10^6/uL (4.30-5.70) L Hemoglobin 8.8g/dL (13.0-17.5) L Hematocrit 25.2% (39.0-53.0) L Mean Corpuscular Volume 105fL (79-100) H Mean Corpuscular Hemoglobin 37pg (25-35) H Mean Corpuscular Hemoglobin Concent 35g/dL (31-37) Red Cell Distribution Width 14.9% (11.5-14.5) H Platelet Count 201x10^3/uL (140-400) Neutrophils (%) (Auto) 73% (31-73) Lymphocytes (%) (Auto) 17% (24-48) L Monocytes (%) (Auto) 8% (0-9) Eosinophils (%) (Auto) 2% (0-3) Basophils (%) (Auto) 0% (0-3) Neutrophils # (Auto) 4.7x10^3uL (1.8-7.7) Lymphocytes # (Auto) 1.1x10^3/uL (1.0-4.8) Monocytes # (Auto) 0.5x10^3/uL (0.0-1.1) Eosinophils # (Auto) 0.1x10^3/uL (0.0-0.7) Basophils # (Auto) 0.0x10^3/uL (0.0-0.2) Prothrombin Time 12.8SEC (11.7-14.0) Prothrombin Time INR 1.0 (0.8-1.1) Sodium Level 142mmol/L (136-145) Potassium Level 3.3mmol/L (3.5-5.1) L Chloride Level 103mmol/L (98-107) Carbon Dioxide Level 32mmol/L (21-32) Anion Gap 7 (6-14) Blood Urea Nitrogen 28mg/dL (8-26) H Creatinine 2.8mg/dL (0.7-1.3) H Estimated GFR (Cockcroft-Gault) 22.7 BUN/Creatinine Ratio 10 (6-20) Glucose Level 187mg/dL (70-99) H Calcium Level 8.5mg/dL (8.5-10.1) Total Bilirubin 0.3mg/dL (0.2-1.0) Aspartate Amino Transferase (AST) 13U/L (15-37) L Alanine Aminotransferase (ALT) 19U/L (16-63) Alkaline Phosphatase 100U/L (46-116) Troponin I Quantitative 0.044ng/mL (0.000-0.055) Total Protein 6.7g/dL (6.4-8.2) Albumin 3.1g/dL (3.4-5.0) L Albumin/Globulin Ratio 0.9 (1.0-1.7) L Laboratory Tests 08/08/16 17:04 Laboratory Tests 08/08/16 17:04 EKG EKG [EKG: Atrial fibrillation with rapid ventricular response rate of [address]-T changes] Radiology/Procedures Radiology/Procedures [] Impressions: Chest x-ray: Cardiomegaly otherwise unremarkable chest x-ray as interpreted by me Course & Med Decision Making Course & Med Decision Making Pertinent Labs and Imaging studies reviewed. (See chart for details) [ED course: Evaluation reveals a 66-year-old male who appears anxious had a heart rate of 140 and a blood pressure in the 70s systolic he was given 500 mL of normal saline over the course of an hour and his symptoms resolved. His heart rate went back down into the 70 range. I discussed all these findings with the patient including a slightly elevated troponin the patient stated he feels much better and wants to go home. He understands the risks of going home including heart attack recurrence of his symptoms and even . His is in the room with him when I discussed all of this and she states she will watch him throughout the night. Honestly, I feel the patient is stable for discharge home and being watched closely at home is is not the worst idea.] Dragon Disclaimer Dragon Disclaimer This electronic medical record was generated, in whole or in part, using a voice recognition dictation system. Departure Departure Impression: Primary Impression: Atrial fibrillation with RVR Disposition: HOME, SELF-CARE Condition: STABLE Referrals: ANNE MENDEZ (PCP) Patient Instructions: Atrial Fibrillation Additional Instructions: Follow with your family doctor this week for recheck. Return to the emergency department immediately with any new or concerning symptoms TIP PABON DO Aug 08, 2016 18:43
[2016-08-08 18:45] VITALS: BP 149/48
--- NOTE | 2016-08-09 08:30 | RAD ---
Indication: Tachycardia, short of air. Lung cancer and hypertension. Technique: Upright portable chest radiograph was obtained. Comparison is from July 26, 2016. Findings: Left basilar graded opacity is again noted. Right lung is clear. Heart is upper limits of normal in size although there is no evidence of heart failure. There is atheromatous disease in the thoracic aorta. Leads overlie the patient. Impression: Left pleural effusion again suspected. Underlying consolidation including mass and/or atelectasis cannot be excluded.
== END 2016-08-08 18:56 | disposition home or self-care (01) ==
LOC: ER 16:39
DX: I48.91 Unspecified atrial fibrillation (principal); F41.9 Anxiety disorder, unspecified; E11.22 Type 2 diabetes mellitus with diabetic chronic kidney disease; I12.0 Hypertensive chronic kidney disease with stage 5 chronic kidney disease or end stage renal disease; N18.6 End stage renal disease; Z99.2 Dependence on renal dialysis; Z88.0 Allergy status to penicillin
CPT/HCPCS: 36415; 71010; 80053; 84484; 85027; 85610; 93005; 96360; 99285; J7040